=== PATIENT | female | born 1945 | race Caucasian/White ===

== ENCOUNTER → 2016-03-24 | Outpatient (CLI) | payer BC ==
[~2016-03-24] MED LIST: ACET-1256 PO; ASPI81TA28 PO; ATOR-22 PO; CHOL1000 PO; CHOL100010 PO; CHOL20009 PO; CLB/200 PO; CMD75 PO; CYAN500T PO; CYCL10TA6 PO; ENOX40IN SQ; FESO4TAB PO; KRIL1000 PO; LEVO25TA PO; LEVO75TA PO; LORA-741 PO; LRS10 PO; METR-163 PO; MIRA1TAB3 PO; OXGN; POTA99TA PO; POTASSIUM PO; PROB1TAB16; RANI150C4 PO; RANI1TAB75 PO; TRAM-10 PO; TROS20TA3 PO; VANC5CAP PO; WARF5TAB90 PO; WARF7.5T PO; ZNTT/150 PO; ZOLP5TAB PO; [UNRECOGNIZED DRUG - OTHER] PO
[2016-03-24 13:18] LABS: CHOLESTEROL/HDL RATIO 3.7
== END | disposition home or self-care (01) ==
LOC: C.LABPVFM 09:49
PROVIDERS: ATTEND Internal Medicine
DX: R07.89 Other chest pain (principal); R53.83 Other fatigue

== ENCOUNTER 2016-04-06 12:31 | Emergency (ER) | payer BC ==
[~2016-04-06] VITALS: Ht 170.2 cm; Wt 71.5 kg
[~2016-04-06 12:31] MED LIST changes: -ACET-1256 PO; -CHOL1000 PO; -CHOL20009 PO; -CYCL10TA6 PO; -ENOX40IN SQ; -FESO4TAB PO; -LEVO75TA PO; -LORA-741 PO; -LRS10 PO; -METR-163 PO; -MIRA1TAB3 PO; -POTASSIUM PO; -PROB1TAB16; -RANI1TAB75 PO; -TRAM-10 PO; -TROS20TA3 PO; -VANC5CAP PO; -WARF7.5T PO; -ZNTT/150 PO; -[UNRECOGNIZED DRUG - OTHER] PO
[2016-04-06 12:32] VITALS: TEMP 36.6; Ht 170.2 cm; Wt 71.5 kg
[2016-04-06 14:33] LABS: BASO % 0.4 %; BASO ABS # 0.02 K/uL (0-0.2); COMPLETE YES; EOS % 4.4 %; HEMATOCRIT 44.6 % (37-47); IG% 0.2 %; LYMPH % 25.6 %; LYMPH ABS # 1.22 K/uL (1.2-3.4); MEAN CELL VOLUME 80.5 fL (80-100); MEAN CORPUSCULAR HGB CONC 32.3 g/dl (32-36); MEAN PLATELET VOLUME 9.5 fL (7.4-10.4); NEUT % 56.4 %; PLATELET COUNT 169 K/uL (130-400); RED BLOOD COUNT 5.54 M/uL (4.2-5.4); WHITE BLOOD COUNT 4.76 K/uL (4.8-10.8)
[2016-04-06] MEDS ORDERED: WARF7.5T PO (14:41)
[2016-04-06] MEDS ORDERED: CHOL1000 PO (14:41)
[2016-04-06] MEDS ORDERED: CYCL10TA6 PO (14:41)
[2016-04-06] MEDS ORDERED: RANI1TAB75 PO (14:43)
[2016-04-06 14:45] LABS: INR 2.5 (0.9-1.1); PARTIAL THROMBOPLASTIN RATIO 1.4; PROTHROMBIN TIME (PATIENT) 27.9 SECONDS (9.0-12.0)
--- NOTE | 2016-04-06 14:51 | DIAGNOSTIC IMAGING REPORT ---
HEAD CT NONCONTRAST CT DOSE: 580.48 mGy.cm HISTORY: Headache eval for bleed TECHNIQUE: Multiaxial CT images of the head were performed without the use of intravenous contrast. Comparison: None. Findings: The paranasal sinuses and mastoid air cells are clear. The calvarium and skull base are intact. The ventricles and sulci are within normal limits. There is no mass, hematoma, midline shift, or acute infarct. Impression: No acute intracranial abnormality. Electronically signed by: Roshan Ulrich M.D. 04/06/2016 2:49 PM Dictated Date/Time: 04/06/2016 2:49 PM
[2016-04-06 14:59] LABS: BUN/CREATININE RATIO 20.8 (10-20); CALCIUM 8.7 mg/dl (8.5-10.1); CREATININE 0.97 mg/dl (0.60-1.20); POTASSIUM 4.2 mmol/L (3.5-5.1)
[2016-04-06 15:31] VITALS: BP 107/82; PULSE 70; O2SAT 96
--- NOTE | 2016-04-06 20:11 | EMERGENCY ROOM VISIT NOTE ---
History Report prepared by Nico: Nat Hagen Under the Supervision of: Dr. Sanjay Longoria M.D. First contact with patient: 13:34 Chief Complaint: HEADACHE Stated Complaint: BAD HEADACHE History of Present Illness The patient is a 70 year old female who presents to the Emergency Room with complaints of an intermittent headache that began about a week ago. The patient states that for several weeks prior to the start of her headache, she was having some twinges of pain to the right side of her head that have been going away so she was not concerned. About a week ago, she developed a more persistent headache on the right side of her head that has since moved to the top of her head. She describes the current pain as dull and nagging and a 3/10 in severity. Since her headache began she has had some lip numbness which has since resolved. She has not had any visual changes. The patient has a history of migraine headaches but states that the location and type of pain does not feel like a typical migraine. She also usually experiences visual changes and hypersensitivity with her migraines, which she does not have now. The patient notes that she had some neck pain which radiated up to her head several months ago after sleeping in an unusual position on a plane and was prescribed a muscle relaxer at that time. She took one of the muscle relaxers without much relief. She also notes that she took a tranquilizer 2 days ago with little relief. She was lifting heavy bails of hay and wood yesterday which did not seem to worsen her pain. The patient is on Coumadin due to a history of blood clots which she most recently had 25 years ago. Denies speech trouble, unilateral numbness or weakness, fever, or other complaints. Source of History: patient Onset: a week ago Position: head (top) Symptom Intensity: 3/10 Quality: dull, other (nagging) Timing: intermittent Associated Symptoms: + numbness (lip numbness), No fevers, No weakness Review of Systems See HPI for pertinent positives & negatives. A total of 10 systems reviewed and were otherwise negative. Past Medical & Surgical Medical Problems: (1) Anxiety (2) Diverticulosis Colon (W/O Ment Of Hemorrhage) (3) Esophageal Reflux (4) Essential Thrombocythemia (5) Hypercholesteremia (6) Hyperlipidemia Nec/Nos (7) Osteoarthritis (8) PERFORATION OF INTESTINE (9) PERSONAL HISTORY OF PULMONARY EMBOLISM (10) Personal History Of Tuberculosis (11) POLYCYTHEMIA VERA (12) Polycythemia Vera (13) Rheumatic fever (14) VENOUS THROMBOSIS NEC Surgical Problems: (1) Left rotator cuff tear (2) Rotator cuff tear, right Family History Cancer Heart disease Stroke MOTHER, Onset:60 years & older GRANDMOTHER, Onset:60 years & older aunt, Onset:60 years & older Social History Smoking Status: Never Smoker Alcohol Use: occasionally Drug Use: none Marital Status: Housing Status: lives with family Occupation Status: retired Current/Historical Medications Scheduled Aspirin (Aspirin Ec), 81 MG PO DAILY Atorvastatin (Lipitor), 20 MG PO DAILY Celecoxib (CeleBREX), 200 MG PO DAILY Cholecalciferol (Vitamin D3), 1 TAB PO DAILY Cyanocobalamin (Vitamin B-12), 500 MCG PO DAILY Cyclobenzaprine Hcl (Flexeril), 10 MG PO TID Krill Oil (Krill Oil), 300 MG PO DAILY Levothyroxine Sodium (Synthroid), 75 MCG PO DAILYBB Oxygen (Oxygen), 1 LITER NA QPM Potassium (Potassium), 99 MG PO BID Ranitidine HCl (Ranitidine 75), 75 MG PO BID Warfarin Sodium (Coumadin), 5 MG PO 3XWK Warfarin Sodium (Coumadin), 7.5 MG PO 4XWK Scheduled PRN Zolpidem Tartrate (Ambien), 5 MG PO HS PRN for Sleep Allergies Coded Allergies: Penicillins (Verified Allergy, Severe, EYES SWELL SHUT, 04/06/16) Alendronate (Verified Adverse Reaction, Intermediate, REFLUX ESOPHAGITIS/ CHEST PAIN, 04/06/16) Bisphosphonates (Verified Adverse Reaction, Intermediate, REFLUX ESOPHAGITIS/CHEST PAIN (FOSAMAX AND BONIVA), 04/06/16) Morphine (Verified Adverse Reaction, Intermediate, vomiting, 04/06/16) Physical Exam Vital Signs Date Time Temp Pulse Resp B/P Pulse Ox O2 Delivery O2 Flow Rate FiO2 04/06/16 15:31 70 20 107/82 96 04/06/16 14:33 76 20 126/67 96 Room Air 04/06/16 12:32 36.6 91 18 107/71 94 Room Air Physical Exam Constitutional: Vital signs reviewed. Eyes: Pupils are equal round reactive to light. Conjunctiva are noninjected. ENT: Pharynx is clear without erythema or exudate. Mucous membranes are moist. Neck supple without meningeal signs. No tenderness to the right temporal artery. Respiratory: Clear to auscultation bilaterally. Breath sounds are equal bilaterally. Cardiovascular: Regular rate and rhythm. No rubs or gallops. GI: Soft, nondistended and nontender. Bowel sounds are present. Musculoskeletal: No peripheral edema. No lower extremity tenderness. Integumentary: No cyanosis. Neurological: The patient is awake and alert. Cranial nerves II-XII are intact. Motor is 5 out of 5 all extremities. Sensation is intact to light touch all extremities. Normal speech. Normal gait. No pronator drift. Psychiatric: Normal affect. Medical Decision & Procedures ER Provider Diagnostic Interpretation: CT results as stated below per my review and radiologist interpretation. HEAD CT NONCONTRAST CT DOSE: 580.48 mGy.cm HISTORY: Headache eval for bleed TECHNIQUE: Multiaxial CT images of the head were performed without the use of intravenous contrast. Comparison: None. Findings: The paranasal sinuses and mastoid air cells are clear. The calvarium and skull base are intact. The ventricles and sulci are within normal limits. There is no mass, hematoma, midline shift, or acute infarct. Impression: No acute intracranial abnormality. Electronically signed by: Roshan Ulrich M.D. 04/06/2016 2:49 PM Dictated Date/Time: 04/06/2016 2:49 PM Laboratory Results 04/06/16 14:20 Red Blood Count 5.54, Mean Corpuscular Volume 80.5, Mean Corpuscular Hemoglobin 26.0, Mean Corpuscular Hemoglobin Concent 32.3, Mean Platelet Volume 9.5, Neutrophils (%) (Auto) 56.4, Lymphocytes (%) (Auto) 25.6, Monocytes (%) (Auto) 13.0, Eosinophils (%) (Auto) 4.4, Basophils (%) (Auto) 0.4, Neutrophils # (Auto ) 2.68, Lymphocytes # (Auto) 1.22, Monocytes # (Auto) 0.62, Eosinophils # (Auto ) 0.21, Basophils # (Auto) 0.02 04/06/16 14:20 Test 04/06/16 14:20 White Blood Count 4.76 K/uL (4.8-10.8) Red Blood Count 5.54 M/uL (4.2-5.4) Hemoglobin 14.4 g/dL (12.0-16.0) Hematocrit 44.6 % (37-47) Mean Corpuscular Volume 80.5 fL (80-100) Mean Corpuscular Hemoglobin 26.0 pg (25-34) Mean Corpuscular Hemoglobin Concent 32.3 g/dl (32-36) Platelet Count 169 K/uL (130-400) Mean Platelet Volume 9.5 fL (7.4-10.4) Neutrophils (%) (Auto) 56.4 % Lymphocytes (%) (Auto) 25.6 % Monocytes (%) (Auto) 13.0 % Eosinophils (%) (Auto) 4.4 % Basophils (%) (Auto) 0.4 % Neutrophils # (Auto) 2.68 K/uL (1.4-6.5) Lymphocytes # (Auto) 1.22 K/uL (1.2-3.4) Monocytes # (Auto) 0.62 K/uL (0.11-0.59) Eosinophils # (Auto) 0.21 K/uL (0-0.5) Basophils # (Auto) 0.02 K/uL (0-0.2) RDW Standard Deviation 51.8 fL (36.4-46.3) RDW Coefficient of Variation 17.6 % (11.5-14.5) Immature Granulocyte % (Auto) 0.2 % Immature Granulocyte # (Auto) 0.01 K/uL (0.00-0.02) Erythrocyte Sedimentation Rate 21 mm/hr (0-21) Prothrombin Time 27.9 SECONDS (9.0-12.0) Prothromb Time International Ratio 2.5 (0.9-1.1) Activated Partial Thromboplast Time 37.6 SECONDS (21.0-31.0) Partial Thromboplastin Ratio 1.4 Anion Gap 11.0 mmol/L (3-11) Est Creatinine Clear Calc Drug Dose 53.2 ml/min Estimated GFR () 69.1 Estimated GFR (Non- 59.6 BUN/Creatinine Ratio 20.8 (10-20) Calcium Level 8.7 mg/dl (8.5-10.1) Laboratory results as reviewed by me. ED Course 1336: The patient was evaluated in room C5. A complete history and physical exam was performed. 1510: I reassessed the patient and discussed test results with her. She agreed with the plan. The patient will be discharged home. Medical Decision This is a 70-year-old female who presents with a headache. Differential diagnosis includes migraine headache, tension headache, intracranial hemorrhage , intracranial mass, temporal arteritis. I did perform a limited focused review of portions of the patient's old chart on the electronic medical record. She had an INR of 2.8 on April 01. I did evaluate the patient as noted above. The patient is presenting with a headache for the past week. She states it is not similar to her previous migraine. She does state it is rather mild and rates it only a 3 out of 10 in severity. She is neurologically intact and afebrile. She does take Coumadin. IV access was established. I did order and review the patient's blood work as noted in the electronic medical record. Her white blood cell count is not elevated. ESR is unremarkable. INR is 2.5. I did order a CT of the head. I did review the images myself as well as the radiology report as described above. There is no evidence of intracranial abnormality. I did discuss the test results with the patient. I did recommend close follow up with her physician. She will use Tylenol as needed for pain. She was discharged in good condition. Impression Primary Impression: Headache Additional Impression: Anticoagulated on Coumadin Scribe Attestation The scribe's documentation has been prepared under my direct and personally reviewed by me in its entirety. I confirm that the note above accurately reflects all work, treatment, procedures, and medical decision making performed by me. Departure Information Dispostion Home / Self-Care Referrals Nolberto Wiley M.D. (PCP) Patient Instructions Headache Pain, My [facility] Additional Instructions You have been examined and treated today on an emergency basis only. This is not a substitute for, or an effort to provide, complete comprehensive medical care. It is impossible to recognize and treat all injuries or illnesses in a single emergency department visit. It is therefore important that you follow up closely with your physician. Call as soon as possible for an appointment. Return for worsening symptoms or if you develop fever, vomiting, numbness or weakness on one side of your body, loss of vision, difficulty with your speech or walking, or any other concerning symptoms. Problem Qualifiers Primary Impression: Headache Headache type: unspecified Headache chronicity pattern: acute headache Intractability: not intractable Qualified Codes: R51 - Headache
[2016-05-27] MEDS ORDERED: OXGN (11:47)
[2016-05-27] MEDS ORDERED: LRS10 PO (11:47)
[2016-05-27] MEDS ORDERED: POTASSIUM PO (12:00)
[2016-05-27] MEDS ORDERED: KRIL1000 PO (12:00)
[2016-05-27] MEDS ORDERED: CHOL20009 PO (12:00)
[2016-05-27] MEDS ORDERED: WARF5TAB90 PO (12:00)
[2016-05-27] MEDS ORDERED: ACET-1256 PO (12:00)
[2016-05-27] MEDS ORDERED: ZOLP5TAB PO (12:00)
[2016-05-27] MEDS ORDERED: WARF7.5T PO (12:00)
[2016-05-27] MEDS ORDERED: LORA-741 PO (12:00)
[2016-05-27] MEDS ORDERED: LEVO75TA PO (12:00)
[2016-05-27] MEDS ORDERED: ZNTT/150 PO (12:00)
[2016-06-05] MEDS ORDERED: METR-163 PO (12:43)
[2016-06-10] MEDS ORDERED: PROB1TAB16 (12:43)
[2016-07-09] MEDS ORDERED: VANC5CAP PO (12:38)
[2016-08-28] MEDS ORDERED: FESO4TAB PO (12:16)
[2016-09-03] MEDS ORDERED: MIRA1TAB3 PO (12:15)
[2016-09-16] MEDS ORDERED: TRAM-10 PO (09:23)
[2016-09-25] MEDS ORDERED: LRS10 PO (13:31)
[2016-09-25] MEDS ORDERED: [UNRECOGNIZED DRUG - OTHER] PO (13:31)
[2016-09-25] MEDS ORDERED: CYAN500T PO (13:31)
[2016-09-29] MEDS ORDERED: ENOX40IN SQ (15:04)
[2016-11-05] MEDS ORDERED: TROS20TA3 PO (14:10)
== END 2016-04-06 15:33 | disposition home or self-care (01) ==
LOC: C.EDB 12:32 → C.EDC 15:33
DX: R51 Headache (principal); Z79.01 Long term (current) use of anticoagulants; F41.9 Anxiety disorder, unspecified; K57.30 Diverticulosis of large intestine without perforation or abscess without bleeding; K21.9 Gastro-esophageal reflux disease without esophagitis; D69.3 Immune thrombocytopenic purpura; E78.00 Pure hypercholesterolemia, unspecified; E78.5 Hyperlipidemia, unspecified; M19.90 Unspecified osteoarthritis, unspecified site; D45 Polycythemia vera; Z86.711 Personal history of pulmonary embolism; Z86.718 Personal history of other venous thrombosis and embolism; Z79.82 Long term (current) use of aspirin; Z82.3 Family history of stroke

== ENCOUNTER → 2016-04-28 | Outpatient (CLI) | payer BC ==
[~2016-04-28] MED LIST changes: +ACET-1256 PO; +CHOL1000 PO; -CHOL100010 PO; +CHOL20009 PO; -CMD75 PO; +CYCL10TA6 PO; +ENOX40IN SQ; +FESO4TAB PO; +LEVO75TA PO; +LORA-741 PO; +LRS10 PO; +METR-163 PO; +MIRA1TAB3 PO; +POTASSIUM PO; +PROB1TAB16; -RANI150C4 PO; +RANI1TAB75 PO; +TRAM-10 PO; +TROS20TA3 PO; +VANC5CAP PO; +WARF7.5T PO; +ZNTT/150 PO; +[UNRECOGNIZED DRUG - OTHER] PO
== END | disposition home or self-care (01) ==
LOC: C.LABBFT 10:25
PROVIDERS: ATTEND Nurse Practitioner
DX: Z11.59 Encounter for screening for other viral diseases (principal)

== ENCOUNTER → 2016-05-06 | Outpatient (CLI) | payer BC ==
[2016-05-06 18:06] LABS: URINE APPEARANCE CLEAR (CLEAR); URINE BILIRUBIN NEG (NEG); URINE COLOR YELLOW; URINE NITRITE NEG (NEG); URINE SPECIFIC GRAVITY 1.003 (1.000-1.030); UROBILINOGEN NEG (NEG)
[2016-05-06 18:21] LABS: MANUAL MICROSCOPIC REQUIRED? NO; REVIEW REQ? NO
== END | disposition home or self-care (01) ==
LOC: C.LABPVFM 14:49
PROVIDERS: ATTEND Internal Medicine
DX: R39.9 Unspecified symptoms and signs involving the genitourinary system (principal)

== ENCOUNTER → 2016-05-20 | Outpatient (CLI) | payer BC ==
--- NOTE | 2016-05-20 16:46 | DIAGNOSTIC IMAGING REPORT ---
ABDOMEN AND PELVIS CT WITH IV AND ORAL CONTRAST CT DOSE: 279.13 mGy.cm HISTORY: Generalized abdominal pain. Right flank pain. TECHNIQUE: Multiaxial CT images of the abdomen and pelvis were performed following the use of intravenous and oral contrast. COMPARISON STUDY: Abdomen and pelvis CT 11/02/2015. FINDINGS: The lung bases are essentially clear. Small hiatus hernia. Small diverticulum at the duodenum. Cholecystectomy. Stable 7 mm hypodense lesion within the left hepatic lobe. This likely represents a cyst. The pancreas, spleen, and adrenal glands are unremarkable. Bilateral peripelvic renal cysts are again noted. No hydronephrosis. Normal bladder. No retroperitoneal lymphadenopathy. Small calcified fibroid within the uterine fundus. This remains unchanged. There appear to be a few punctate stones within the kidneys. A few colonic diverticula. No bowel wall thickening or obstruction. The visualized appendix is unremarkable. Evidence for prior small bowel anastomosis within the midabdomen. IMPRESSION: 1. No significant change compared to the prior study. 2. No definite bowel wall thickening or obstruction. 3. Bilateral nephrolithiasis. No hydronephrosis. 4. The visualized appendix is unremarkable. 5. A few colonic diverticula. Electronically signed by: Arsh Khanna M.D. 05/20/2016 4:45 PM Dictated Date/Time: 05/20/2016 4:40 PM
== END | disposition home or self-care (01) ==
LOC: C.CTS 14:04
PROVIDERS: ATTEND Obstetrics & Gynecology
DX: M54.5 Low back pain (principal); R10.9 Unspecified abdominal pain; D45 Polycythemia vera

== ENCOUNTER → 2016-06-02 | Outpatient (CLI) | payer BC ==
[~2016-06-02] MED LIST changes: -CHOL1000 PO; -CYCL10TA6 PO; -LEVO25TA PO; -POTA99TA PO; -RANI1TAB75 PO
== END | disposition home or self-care (01) ==
LOC: C.LABSPEC 10:45
PROVIDERS: ATTEND Nurse Practitioner Adult Health
DX: R39.9 Unspecified symptoms and signs involving the genitourinary system (principal)

== ENCOUNTER → 2016-06-10 | Outpatient (CLI) | payer BC | END | disposition home or self-care (01) | LOC: C.LABPVFM 16:15 | PROVIDERS: ATTEND Nurse Practitioner | DX: R39.9 Unspecified symptoms and signs involving the genitourinary system (principal); Z51.81 Encounter for therapeutic drug level monitoring; Z79.01 Long term (current) use of anticoagulants ==

== ENCOUNTER → 2016-07-31 | Outpatient (CLI) | payer BC ==
[~2016-07-31] MED LIST changes: -LORA-741 PO; -METR-163 PO
[2016-07-31 18:00] LABS: ALB/GLOB RATIO 1.1 (0.9-2); ALKALINE PHOSPHATASE 103 U/L (45-117); ALT/SGPT 40 U/L (12-78); AST/SGOT 35 U/L (15-37); BLOOD UREA NITROGEN 22 mg/dl (7-18); CALCIUM 9.1 mg/dl (8.5-10.1); CARBON DIOXIDE 30 mmol/L (21-32); CHLORIDE 108 mmol/L (98-107); CREATININE 0.81 mg/dl (0.60-1.20); GLUCOSE 89 mg/dl (70-99); POTASSIUM 4.5 mmol/L (3.5-5.1); SODIUM 141 mmol/L (136-145)
== END | disposition home or self-care (01) ==
LOC: C.LABPVFM 13:31
PROVIDERS: ATTEND Internal Medicine
DX: R10.9 Unspecified abdominal pain (principal); E03.9 Hypothyroidism, unspecified

== ENCOUNTER → 2016-08-11 | Outpatient (CLI) | payer BC | END | disposition home or self-care (01) | LOC: C.LABPVFM 14:41 | PROVIDERS: ATTEND Nurse Practitioner Adult Health | DX: N39.0 Urinary tract infection, site not specified (principal) ==

== ENCOUNTER → 2016-08-27 | Outpatient (CLI) | payer BC ==
[~2016-08-27] MED LIST changes: -PROB1TAB16; -VANC5CAP PO
== END | disposition home or self-care (01) ==
LOC: C.LABSPEC 17:08
PROVIDERS: ATTEND Nurse Practitioner Adult Health
DX: N20.0 Calculus of kidney (principal)

== ENCOUNTER → 2016-08-28 | Outpatient (CLI) | payer BC ==
--- NOTE | 2016-08-28 11:50 | DIAGNOSTIC IMAGING REPORT ---
KUB HISTORY: N20.0 Nephrolithiasis COMPARISON: Abdomen and pelvis CT 05/20/2016. FINDINGS: The bowel gas pattern is unremarkable. There are no dilated loops of small bowel to suggest an obstruction. Stable calcification in the midpelvis consistent with a calcified uterine fibroid. Left deep pelvis calcifications are also stable and are consistent with phleboliths. Suture material within the deep pelvis. There are multiple punctate bilateral renal calculi. Moderate well-formed stool seen within the colon. Cholecystectomy. No pneumoperitoneum or pneumatosis. IMPRESSION: Multiple punctate bilateral renal calculi, unchanged. No ureteral calculi identified. Electronically signed by: Arsh Khanna M.D. 08/28/2016 11:48 AM Dictated Date/Time: 08/28/2016 11:46 AM
== END | disposition home or self-care (01) ==
LOC: C.RAD 11:15
PROVIDERS: ATTEND Nurse Practitioner Adult Health
DX: N20.0 Calculus of kidney (principal)

== ENCOUNTER → 2016-09-05 | Outpatient (CLI) | payer BC ==
[~2016-09-05] MED LIST changes: -FESO4TAB PO
[2016-09-05 18:13] LABS: LYME DISEASE AB IGG NEG (NEG); LYME DISEASE AB IGM NEG (NEG)
== END | disposition home or self-care (01) ==
LOC: C.LABBFT 14:33
PROVIDERS: ATTEND Physician Assistant Medical
DX: R61 Generalized hyperhidrosis (principal)

== ENCOUNTER → 2016-09-11 | Outpatient (CLI) | payer BC ==
[~2016-09-11] MED LIST changes: -CYAN500T PO; -ENOX40IN SQ; -LRS10 PO; -TROS20TA3 PO; -[UNRECOGNIZED DRUG - OTHER] PO
[2016-09-11 18:04] LABS: BASO % 0.5 %; BASO ABS # 0.03 K/uL (0-0.2); COMPLETE YES; EOS % 3.5 %; HEMATOCRIT 50.3 % (37-47); IG% 0.2 %; LYMPH % 26.3 %; LYMPH ABS # 1.51 K/uL (1.2-3.4); MEAN CELL VOLUME 84.8 fL (80-100); MEAN CORPUSCULAR HGB CONC 31.8 g/dl (32-36); MEAN PLATELET VOLUME 9.7 fL (7.4-10.4); MONO % 9.4 %; NEUT % 60.1 %; PLATELET COUNT 181 K/uL (130-400); RED BLOOD COUNT 5.93 M/uL (4.2-5.4); WHITE BLOOD COUNT 5.74 K/uL (4.8-10.8)
[2016-09-11 18:27] LABS: ALT/SGPT 30 U/L (12-78); BLOOD UREA NITROGEN 26 mg/dl (7-18); BUN/CREATININE RATIO 29.1 (10-20); CALCIUM 9.1 mg/dl (8.5-10.1); CARBON DIOXIDE 28 mmol/L (21-32); CHLORIDE 107 mmol/L (98-107); GLUCOSE 96 mg/dl (70-99); POTASSIUM 4.9 mmol/L (3.5-5.1); SODIUM 141 mmol/L (136-145)
[2016-09-11 18:30] LABS: ALB/GLOB RATIO 1.1 (0.9-2); ALKALINE PHOSPHATASE 96 U/L (45-117); AST/SGOT 26 U/L (15-37)
== END | disposition home or self-care (01) ==
LOC: C.LABPVFM 15:46
PROVIDERS: ATTEND Physician Assistant Medical
DX: R61 Generalized hyperhidrosis (principal)

== ENCOUNTER → 2016-09-18 | Outpatient (CLI) | payer BC ==
[~2016-09-18] MED LIST changes: +CYAN500T PO; +ENOX40IN SQ; +LRS10 PO; +TROS20TA3 PO; +[UNRECOGNIZED DRUG - OTHER] PO
[2016-09-22 11:38] LABS: 5-HIAA 2.8 mg/24 h (<=6.0)
== END | disposition home or self-care (01) ==
LOC: C.LABPVFM 13:42
PROVIDERS: ATTEND Physician Assistant Medical
DX: R61 Generalized hyperhidrosis (principal); M54.5 Low back pain; R10.31 Right lower quadrant pain

== ENCOUNTER → 2016-09-18 | Outpatient (CLI) | payer BC | END | disposition home or self-care (01) | LOC: C.LABPVFM 15:34 | PROVIDERS: ATTEND Nurse Practitioner Family | DX: M54.5 Low back pain (principal); R10.31 Right lower quadrant pain ==

== ENCOUNTER → 2016-09-24 | Outpatient (CLI) | payer BC ==
[~2016-09-24] MED LIST changes: -MIRA1TAB3 PO; +OPTIRAY 320 IV PRN
--- NOTE | 2016-09-24 13:31 | DIAGNOSTIC IMAGING REPORT ---
(CHEST) THORAX WITH CLINICAL HISTORY: 70 years-old Female presenting with night sweats and weight loss, precolonoscopy. TECHNIQUE: Multidetector CT imaging of the chest was performed after the administration of intravenous contrast. IV contrast: 93 mL of Optiray 320. A dose lowering technique was used consistent with the principles of ALARA (as low as reasonably achievable). COMPARISON: CTA chest from 2015. CT DOSE (mGy.cm): The estimated cumulative dose is 229.41 mGycm. 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 On soft tissue windows, normal thyroid and thoracic inlet. No axillary, supraclavicular, or mediastinal lymphadenopathy. Few small hilar lymph nodes. Minimal atherosclerosis of aortic arch. Normal heart size. No pericardial or pleural effusion. Cholecystectomy clips noted. On lung windows, reticulation and bandlike consolidation at the apices not significantly changed from prior additional. Peripheral consolidation in the posterior segment of the right upper lobe with few associated tree-in-bud opacities more inferiorly stable to slight interval increase from prior. Adjacent right upper lobe solid nodule measuring 4 mm (series 4 image 125). Numerous additional punctate nodules bilaterally. Minimal dependent opacities at the right lung base, possibly scarring or atelectasis. Minimal subpleural groundglass reticulation dependently in the left lower lobe, nonspecific. Airways patent. On bone windows, normal osseous structures. IMPRESSION: 1. Persistent minimal biapical reticulation and consolidation likely cicatrizing atelectasis. 2. Stable to slight interval increase in right upper lobe nodular opacities; atypical infection/bronchiolitis not excluded. 3. Nonspecific bilateral small solid pulmonary nodules, the largest measuring 4 mm. Follow-up per Fleischner Society 2017 recommendations below. Please refer to below summary of Fleischner Society 2017 recommendations for follow-up of incidental CT nodules (H Lorin et al. Guidelines for management of incidental pulmonary nodules detected on CT images: From the Fleischner Society 2017. Radiology 2017; 284: 228-243.) SOLID NODULES Single nodule; size <6 mm * Low risk patients: No routine follow-up * High risk patients: Optional CT at 12 months Single nodule; size 6-8 mm * Low risk patients: CT at 6-12 months, then consider CT at 18-24 months * High risk patients: CT at 6-12 months, then at 18-24 months Single nodule; size >8 mm * Either low or high risk patients: Considered CT at 3 months, PET/CT, or tissue sampling Multiple nodules; size <6 mm * Low risk patients: No routine follow up * High risk patients: Optional CT at 12 months Multiple nodules; size 6-8 mm * Low risk patients: CT at 3-6 months, then consider CT at 18-24 months * High risk patients: CT at 3-6 months, then at 18-24 months Multiple nodules; size >8 mm * Low risk patients: CT at 3-6 months, then consider at 18-24 months * High risk patients: CT at 3-6 months, then at 18-24 months Note: These guidelines apply to incidental nodules. These guidelines did not apply to patients younger than 35 years, immunocompromised patients, or patients with cancer. * Low risk patients: Minimal or absent history of smoking and/or other known risk factors * High risk patients: History of smoking, exposure to other carcinogens, emphysema, fibrosis, upper lobe location, family history of lung cancer, etc. * If a nodule up to 8 mm is partly solid or is ground glass further follow-up is required after 24 months to exclude possible slow growing adenocarcinoma SUBSOLID NODULES Single ground-glass nodule * Nodule size < 6 mm: No routine follow-up * Nodule size > or = 6 mm: CT at 6-12 months to confirm persistence, then CT every 2 years until 5 years Single part-solid nodule * Nodule size < 6 mm: No routine follow-up * Nodules size > or = 6 mm: CT at 3-6 months to confirm persistence. If unchanged and solid component remains < 6 mm, annual CT should be performed for 5 years Multiple nodules * Nodule size < 6 mm: CT at 3-6 months. If stable, consider CT at 2 and 4 years. * Nodules size > or = 6 mm: CT at 3-6 months. Subsequent management based on the most suspicious nodule(s) Electronically signed by: Ugo Arora M.D. 09/24/2016 1:30 PM Dictated Date/Time: 09/24/2016 1:20 PM
== END | disposition home or self-care (01) ==
LOC: C.CTS 12:43
PROVIDERS: ATTEND Physician Assistant Medical
DX: R61 Generalized hyperhidrosis (principal)

== ENCOUNTER → 2016-09-29 | Day surgery (SDC) | payer BC ==
[2016-09-25 13:32] VITALS: Ht 170.2 cm; Wt 69.1 kg
[~2016-09-29] VITALS: Ht 170.2 cm; Wt 69.1 kg
[~2016-09-29] MED LIST changes: +LIDOCAINE HCL 2% 2 ML VIAL (20MG/ML) ONE; -OPTIRAY 320 IV PRN; +PROPOFOL IV EMULSION 10 MG/ML 20 ML VIAL IV ONE; -TRAM-10 PO
[2016-09-29 15:12] VITALS: TEMP 36.3
--- NOTE | 2016-09-29 15:28 | Endo History and Physical ---
History & Physical Date of Service: Sep 29, 2016. Chief Complaint: screening Referring Physician: Dr. Wiley,copies to Dr. Eastman also per patient History of Present Illness 70 yo CF who presents for screening colonoscopy. Past Medical History Arthritis, Gastrointestinal Disorder, Pulmonary Emboli, Anxiety, Cancer, High Cholesterol Past Surgical History Hx Cardiac Surgery: No Hx Internal Defibrillator: No Hx Pacemaker: No Hx Abdominal Surgery: Yes (TUBAL LIGATION, BOWEL RESECTION, TANIA) Hx of Implantable Prosthesis: No Hx Post-Op Nausea and Vomiting: No Hx Cancer Surgery: Yes (SKIN CANCER REMOVAL) Hx Thoracic Surgery: No Hx Orthopedic: Yes (RT/LT RCR) Hx Urinary Tract Surgery: Yes (BLADDER TACK) Family History None Social History Smoking Status: Never Smoker Hx Substance Use: No Hx Alcohol Use: Yes (1 BEER OR WINE/WEEK) Allergies Coded Allergies: Penicillins (Verified Allergy, Severe, EYES SWELL SHUT, 09/25/16) Alendronate (Verified Adverse Reaction, Intermediate, REFLUX ESOPHAGITIS/ CHEST PAIN, 09/25/16) Bisphosphonates (Verified Adverse Reaction, Intermediate, REFLUX ESOPHAGITIS/CHEST PAIN (FOSAMAX AND BONIVA), 09/25/16) Morphine (Verified Adverse Reaction, Intermediate, vomiting, 09/25/16) Current Medications Reported Home Medications Medications Dose Route/Sig Max Daily Dose Days Date Category Dose Instructions Lovenox (Enoxaparin Sodium) 40 Mg/0.4 Ml Inj 40 Mg SQ DAILY 09/29/16 Reported [Ibguard] 1 Tab PO QAM 09/25/16 Reported Baclofen 10 Mg Tab 1 Tab PO DAILY PRN 09/25/16 Reported Vitamin B-12 (Cyanocobalamin) 500 Mcg Tab 500 Mcg PO QAM 09/25/16 Reported Ambien (Zolpidem Tartrate) 5 Mg Tab 0.5-1 Tab PO HS PRN 05/27/16 Reported Coumadin (Warfarin Sodium) 7.5 Mg Tab 7.5 Mg PO 4XWK 05/27/16 Reported SUN,TUES,THURS,SAT Coumadin (Warfarin Sodium) 5 Mg Tab 5 Mg PO 3XWK 05/27/16 Reported MON,WED,FRI Vitamin D (Cholecalciferol) 2,000 Unit Tab 1 Tab PO QAM 05/27/16 Reported Tylenol (Acetaminophen) 500 Mg Tab 1 Tab PO Q8 PRN 05/27/16 Reported Zantac (Ranitidine HCl) 150 Mg Tab 150 Mg PO BID 05/27/16 Reported [Potassium ] 99 Mg PO BID 05/27/16 Reported Synthroid (Levothyroxine Sodium) 75 Mcg Tab 75 Mcg PO QAM 05/27/16 Reported Krill Oil 1 Cap Cap 1 Cap PO BID 05/27/16 Reported Oxygen Gas 1 Liter NA HS 05/27/16 Reported Aspirin Ec (Aspirin) 81 Mg Tab 81 Mg PO QAM 01/02/16 Reported CeleBREX (Celecoxib) 200 Mg Cap 200 Mg PO BID 11/10/13 Reported Lipitor (Atorvastatin Calcium) 20 Mg Tab 20 Mg PO QAM 06/09/12 Reported Vital Signs Weight (Kilograms): 69.09 Height (Feet): 5 Height (Inches): 7 Date Time Temp Pulse Resp B/P (MAP) Pulse Ox O2 Delivery O2 Flow Rate FiO2 09/29/16 15:12 36.3 86 18 121/76 (91) 95 Room Air Physical Exam General Appearance: WD/WN, no apparent distress Respiratory/Chest: Auscultation: breath sounds normal Cardiovascular: Heart Auscultation: RRR Abdomen: Bowel Sounds: normal Inspection & Palpation: soft, non-distended, no tenderness, guarding & rebound Assessment and Plan Assessment: 70 yo CF who presents for screening colonoscopy. Plan: Proceed with colonoscopy.
--- NOTE | 2016-09-29 15:59 | GI REPORT ---
Procedure Date: 09/29/2016 2:51 PM Procedure: Colonoscopy Indications: Screening for colorectal malignant neoplasm Medicines: Monitored Anesthesia Care Complications: No immediate complications. Estimated Blood Loss: Estimated blood loss: none. Procedure: Pre-Anesthesia Assessment: - Prior to the procedure, a History and Physical was performed, and patient medications and allergies were reviewed. The patient's tolerance of previous anesthesia was also reviewed. The risks and benefits of the procedure and the sedation options and risks were discussed with the patient. All questions were answered, and informed consent was obtained. Prior Anticoagulants: The patient last took aspirin 1 day, Coumadin (warfarin) 3 days and Lovenox (enoxaparin) 1 day prior to the procedure. ASA Grade Assessment: IV - A patient with severe systemic disease that is a constant threat to life. After reviewing the risks and benefits, the patient was deemed in satisfactory condition to undergo the procedure. After I obtained informed consent, the scope was passed under direct vision. Throughout the procedure, the patient's blood pressure, pulse, and oxygen saturations were monitored continuously. The scope was introduced through the anus and advanced to the terminal ileum. The colonoscopy was performed with moderate difficulty due to restricted mobility of the colon and significant looping. Successful completion of the procedure was aided by using manual pressure. The patient tolerated the procedure fairly well. The quality of the bowel preparation was good. The terminal ileum, ileocecal valve, appendiceal orifice, and rectum were photographed. Findings: Multiple small-mouthed diverticula were found in the sigmoid colon. Non-bleeding internal hemorrhoids were found during retroflexion. The hemorrhoids were small. Impression: - Diverticulosis in the sigmoid colon. - Non-bleeding internal hemorrhoids. - No specimens collected. Recommendation: - Resume previous diet. - Continue present medications. - Repeat colonoscopy in 5 years for surveillance. - Return to primary care physician as previously scheduled. Benjamin Bobby DO 09/29/2016 3:58:27 PM This report has been signed electronically. Note Initiated On: 09/29/2016 2:51 PM I attest to the content of the Intraoperative Record and orders documented therein, exceptions below
--- NOTE | 2016-09-29 15:59 | Discharge Instructions ---
Endoscopy Patient Instructions Date / Procedure(s) Performed Sep 29, 2016. Colonoscopy Allergy Information Coded Allergies: Penicillins (Verified Allergy, Severe, EYES SWELL SHUT, 09/25/16) Alendronate (Verified Adverse Reaction, Intermediate, REFLUX ESOPHAGITIS/ CHEST PAIN, 09/25/16) Bisphosphonates (Verified Adverse Reaction, Intermediate, REFLUX ESOPHAGITIS/CHEST PAIN (FOSAMAX AND BONIVA), 09/25/16) Morphine (Verified Adverse Reaction, Intermediate, vomiting, 09/25/16) Discharge Date / Findings Sep 29, 2016. Diverticulosis Internal hemorrhoids Medication Instructions Stopped Medication(s): last dose warfarin Wed 09/24,lovenox 09/28 1030,ASA 09/28,krill oil 09/26 OK to resume all medications today as prescribed Reported Home Medications Medications Dose Route/Sig Max Daily Dose Days Date Category Dose Instructions Lovenox (Enoxaparin Sodium) 40 Mg/0.4 Ml Inj 40 Mg SQ DAILY 09/29/16 Reported [Ibguard] 1 Tab PO QAM 09/25/16 Reported Baclofen 10 Mg Tab 1 Tab PO DAILY PRN 09/25/16 Reported Vitamin B-12 (Cyanocobalamin) 500 Mcg Tab 500 Mcg PO QAM 09/25/16 Reported Ambien (Zolpidem Tartrate) 5 Mg Tab 0.5-1 Tab PO HS PRN 05/27/16 Reported Coumadin (Warfarin Sodium) 7.5 Mg Tab 7.5 Mg PO 4XWK 05/27/16 Reported SUN,TUES,THURS,SAT Coumadin (Warfarin Sodium) 5 Mg Tab 5 Mg PO 3XWK 05/27/16 Reported MON,WED,THU Vitamin D (Cholecalciferol) 2,000 Unit Tab 1 Tab PO QAM 05/27/16 Reported Tylenol (Acetaminophen) 500 Mg Tab 1 Tab PO Q8 PRN 05/27/16 Reported Zantac (Ranitidine HCl) 150 Mg Tab 150 Mg PO BID 05/27/16 Reported [Potassium ] 99 Mg PO BID 05/27/16 Reported Synthroid (Levothyroxine Sodium) 75 Mcg Tab 75 Mcg PO QAM 05/27/16 Reported Krill Oil 1 Cap Cap 1 Cap PO BID 05/27/16 Reported Oxygen Gas 1 Liter NA HS 05/27/16 Reported Aspirin Ec (Aspirin) 81 Mg Tab 81 Mg PO QAM 01/02/16 Reported CeleBREX (Celecoxib) 200 Mg Cap 200 Mg PO BID 11/10/13 Reported Lipitor (Atorvastatin Calcium) 20 Mg Tab 20 Mg PO QAM 06/09/12 Reported Provider Instructions Activity Restrictions - No exercising or heavy lifting for 24 hours. - Do not drink alcohol the day of the procedure. - Do not drive a car or operate machinery until the day after the procedure. - Do not make any important decisions or sign important papers in 24 hours after the procedure. Following Day: - Return to full activity which may include returning to work/school. Diet Start your diet with liquids and light foods (jello, soup, juice, toast). Then eat your usual diet if not nauseated. Treatment For Common After Affects For mild abdominal pain, bloating, or excessive gas: - Rest - Eat lightly - Lie on right side Follow-Up Information Follow-up with Dr. Wiley,copies to Dr. Eastman also per patient as scheduled Anesthesia Information What You Should Know You have had a procedure that required some medicine to reduce anxiety and discomfort. This treatment is called moderate sedation. After receiving the treatment, you may be sleepy, but you will be able to breathe on your own. The effects of the treatment may last for several hours. Follow these instructions along with Activity/Diet recommendations noted above: * Do NOT do anything where dizziness or clumsiness would be dangerous. * Rest quietly at home today, then you can be up and about tomorrow. * Have a responsible person stay with you the rest of today. * You may have had an I.V. today. If so, you may take the dressing off later today. Recommendations Call your doctor if: * Trouble breathing * Continuous vomiting for more than 24 hours * Temperature above 101 degrees * Severe abdominal pain or bloating * Pain not relieved by pain medicine ordered * There is increased drainage or redness from any incision * A large amount of rectal bleeding greater than 2-3 tablespoons. (If you had a polyp/s removed or have hemorrhoids, a small amount of blood - from the rectum is to be expected.) * You have any unanswered questions or concerns. IN THE EVENT OF A SERIOUS EMERGENCY, GO TO THE NEAREST EMERGENCY ROOM Your discharge instructions were prepared by provider Benjamin Bobby. Patient Instructions Signature Page Jeniffer Coyle Patient (or Guardian) Signature/Date: I have read and understand the instructions given to me by my caregivers. Caregiver/RN/Doctor Signature/Date: The above-named patient and/or guardian has received patient instructions on this date. + Original Patient Signature Page (only) stays with chart. Please make copy for patient.
--- NOTE | 2016-09-29 16:11 | Anesthesiology Progress Note ---
Anesthesia Post Op Note Date & Time Sep 29, 2016 at 16:11 Vital Signs Pain Intensity: 2 Vital Signs Past 12 Hours Date Time Temp Pulse Resp B/P (MAP) Pulse Ox O2 Delivery O2 Flow Rate FiO2 09/29/16 16:07 82 18 106/66 (79) 95 Room Air 09/29/16 15:52 81 16 93/54 (67) 95 Room Air 09/29/16 15:12 36.3 86 18 121/76 (91) 95 Room Air Notes Mental Status: alert / awake / arousable, participated in evaluation Pt Amnestic to Procedure: Yes Nausea / Vomiting: adequately controlled Pain: adequately controlled Airway Patency, RR, SpO2: stable & adequate BP & HR: stable & adequate Hydration State: stable & adequate Anesthetic Complications: no major complications apparent
[2016-09-29 16:22] VITALS: BP 112/66; PULSE 69; O2SAT 95
== END | disposition home or self-care (01) ==
LOC: C.GI 14:39
PROVIDERS: ATTEND Internal Medicine
DX: Z12.11 Encounter for screening for malignant neoplasm of colon (principal); K57.92 Diverticulitis of intestine, part unspecified, without perforation or abscess without bleeding; K64.8 Other hemorrhoids; M19.90 Unspecified osteoarthritis, unspecified site; Z86.711 Personal history of pulmonary embolism; F41.9 Anxiety disorder, unspecified; E78.00 Pure hypercholesterolemia, unspecified; Z98.51 Tubal ligation status; Z90.49 Acquired absence of other specified parts of digestive tract; Z85.820 Personal history of malignant melanoma of skin; Z79.01 Long term (current) use of anticoagulants; Z79.82 Long term (current) use of aspirin; Z98.41 Cataract extraction status, right eye; G47.33 Obstructive sleep apnea (adult) (pediatric); Z86.11 Personal history of tuberculosis; Z86.718 Personal history of other venous thrombosis and embolism; K21.9 Gastro-esophageal reflux disease without esophagitis; K44.9 Diaphragmatic hernia without obstruction or gangrene; E03.9 Hypothyroidism, unspecified; Z87.442 Personal history of urinary calculi; Z86.19 Personal history of other infectious and parasitic diseases

== ENCOUNTER → 2016-10-13 | Outpatient (CLI) | payer BC ==
[~2016-10-13] MED LIST changes: -LIDOCAINE HCL 2% 2 ML VIAL (20MG/ML) ONE; -PROPOFOL IV EMULSION 10 MG/ML 20 ML VIAL IV ONE
--- NOTE | 2016-10-14 14:37 | MAMMOGRAPHY REPORT ---
BILATERAL DIGITAL SCREENING MAMMOGRAM WITH CAD: 10/13/2016 CLINICAL HISTORY: Routine screening. TECHNIQUE: Bilateral CC and MLO views were obtained. Current study was also evaluated with a Compute r Aided Detection (CAD) system. COMPARISON: Comparison is made to exams dated: 10/12/2015 mammogram, 10/09/2014 mammogram, 10/07/2013 ma mmogram, 10/06/2012 mammogram, 10/06/2011 mammogram, and 10/03/2010 mammogram - [facility] BREAST COMPOSITION: There are scattered areas of fibroglandular density in both breasts. FINDINGS: There is a cluster of microcalcifications in the upper outer middle one third of the right breast, for which additional spot magnification views are recommended. A few stable scattered benign coarse and punctate calcifications bilaterally. No other suspicious mas s, architectural distortion or cluster of microcalcifications is seen. IMPRESSION: ACR BI-RADS CATEGORY 0: INCOMPLETE EVALUATION: NEED ADDITIONAL IMAGING EVALUATION The cluster of microcalcifications in the right upper outer breast needs additional evaluation. The patient will be called to schedule an appointment. Approximately 10% of breast cancers are not detected with mammography. A negative mammographic report should not delay biopsy if a clinically suggestive mass is present. Mima Watson M.D. ay/:10/13/2016 14:44:00 Calculus Professor: Za PHILIPPE(R)(M), [facility] letter sent: Addl Imaging 0 BI-RADS Code: ACR BI-RADS Category 0: Incomplete Evaluation: Need Additional Imaging Evaluation
== END | disposition home or self-care (01) ==
LOC: C.MAMM 14:06
PROVIDERS: ATTEND Obstetrics & Gynecology
DX: Z12.31 Encounter for screening mammogram for malignant neoplasm of breast (principal); R92.0 Mammographic microcalcification found on diagnostic imaging of breast; Z51.81 Encounter for therapeutic drug level monitoring; Z79.01 Long term (current) use of anticoagulants; D45 Polycythemia vera

== ENCOUNTER → 2016-10-21 | Outpatient (CLI) | payer BC ==
[~2016-10-21] MED LIST changes: -ENOX40IN SQ; -[UNRECOGNIZED DRUG - OTHER] PO
== END | disposition home or self-care (01) ==
LOC: C.LABBFT 12:49
PROVIDERS: ATTEND Physician Assistant Medical
DX: J02.9 Acute pharyngitis, unspecified (principal)

== ENCOUNTER → 2016-10-23 | Outpatient (CLI) | payer BC ==
--- NOTE | 2016-10-23 13:58 | MAMMOGRAPHY REPORT ---
UNILATERAL RIGHT DIGITAL DIAGNOSTIC MAMMOGRAM: 10/23/2016 CLINICAL HISTORY: Callback from screening mammogram for right breast calcifications. TECHNIQUE: Spot magnification right cc and ML views were obtained. COMPARISON: Comparison is made to exams dated: 10/13/2016 mammogram, 10/12/2015 mammogram, 10/09/2014 m ammogram, 10/07/2013 mammogram, 10/06/2012 mammogram, and 10/06/2011 mammogram - [facility]. BREAST COMPOSITION: There are scattered areas of fibroglandular density in the right breast. FINDINGS: Spot magnification views demonstrate a small 6 mm cluster of coarse, heterogeneous calcifi cations in the right upper outer quadrant in association with an asymmetry. The asymmetry has been s table dating back to at least the 2009 exam on the cc view and the calcifications do not appear signi ficantly changed dating back to the September 2014 exam. 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 Recommend short inter loretta follow-up in 6 months to confirm stability on spot magnification views. IMPRESSION: ACR-BI-RADS CATEGORY 3: PROBABLY BENIGN Small cluster of calcifications in the right upper outer quadrant is stable dating back to at least t 2014 exam, and an asymmetry in association with the calcifications is stable dating back to at [address] the 2009 exam. 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 Re commend follow-up diagnostic tomosynthesis mammograms of the right breast in 6 months to confirm stab ility on spot magnification views. The patient has been verbally notified of the results. Approximately 10% of breast cancers are not detected with mammography. A negative mammographic report should not delay biopsy if a clinically suggestive mass is present. Criss Ramos M.D. /:10/23/2016 10:30:30 Oyster Planter: Nga PHILIPPE(Caryn)(M), [facility] letter sent: Follow Up Recommended 3 BI-RADS Code: ACR-BI-RADS Category 3: Probably Benign
== END | disposition home or self-care (01) ==
LOC: C.MAMM 10:00
PROVIDERS: ATTEND Obstetrics & Gynecology
DX: R92.0 Mammographic microcalcification found on diagnostic imaging of breast (principal)

== ENCOUNTER → 2016-11-18 | Outpatient (CLI) | payer BC ==
[2016-11-18 17:58] LABS: URINE APPEARANCE CLEAR (CLEAR); URINE BILIRUBIN NEG (NEG); URINE COLOR YELLOW; URINE EPITHELIAL CELL AUTO 0-5 /lpf (0-5); URINE NITRITE NEG (NEG); URINE PH 5.5 (4.5-7.5); URINE SPECIFIC GRAVITY 1.013 (1.000-1.030); UROBILINOGEN NEG (NEG); ZZUR CULT IF INDIC CLEAN CATCH NO
[2016-11-18 18:09] LABS: MANUAL MICROSCOPIC REQUIRED? NO; REVIEW REQ? NO
== END | disposition home or self-care (01) ==
LOC: C.LABBFT 11:39
PROVIDERS: ATTEND Internal Medicine
DX: R39.9 Unspecified symptoms and signs involving the genitourinary system (principal)

== ENCOUNTER → 2016-12-11 | Outpatient (CLI) | payer BC | END | disposition home or self-care (01) | LOC: C.MAMM 09:28 | PROVIDERS: ATTEND Internal Medicine | DX: M81.0 Age-related osteoporosis without current pathological fracture (principal); M85.852 Other specified disorders of bone density and structure, left thigh; M85.851 Other specified disorders of bone density and structure, right thigh ==

== ENCOUNTER → 2016-12-26 | Outpatient (CLI) | payer BC | END | disposition home or self-care (01) | LOC: C.LABPVFM 10:19 | PROVIDERS: ATTEND Internal Medicine | DX: M81.0 Age-related osteoporosis without current pathological fracture (principal) ==

== ENCOUNTER → 2017-01-28 | Outpatient (CLI) | payer BC ==
--- NOTE | 2017-01-28 14:25 | DIAGNOSTIC IMAGING REPORT ---
CHEST 2 VIEWS ROUTINE CLINICAL HISTORY: R05 Chronic [id number] cough. Dyspnea. COMPARISON STUDY: 01/09/2016 FINDINGS: Mild emphysematous change. Chronic fibronodular change pulmonary apices. Diaphragms are smooth. Degenerative changes thoracic spine. IMPRESSION: Chronic and emphysematous change. No acute or interval process. The above report was generated using voice recognition software. It may contain grammatical, syntax or spelling errors. Electronically signed by: Roshan Ulrich M.D. 01/28/2017 2:24 PM Dictated Date/Time: 01/28/2017 2:22 PM
== END | disposition home or self-care (01) ==
LOC: C.RAD1850 14:01
PROVIDERS: ATTEND Internal Medicine Pulmonary Disease
DX: R05 Cough (principal)

== ENCOUNTER → 2017-03-17 | Outpatient (CLI) | payer BC ==
[~2017-03-17] MED LIST changes: +OPTIRAY 320 IV PRN
--- NOTE | 2017-03-17 13:04 | DIAGNOSTIC IMAGING REPORT ---
CT OF THE CHEST WITH IV CONTRAST CLINICAL HISTORY: Pulmonary nodules. History of TB. COMPARISON STUDY: Chest CT September 24, 2016. TECHNIQUE: Following IV administration of 82 mL of Optiray-320, helical axial images of the chest were obtained. Sagittal and coronal reconstructions were viewed as well as maximal intensity projections on an independent 3-D workstation. A dose lowering technique was utilized adhering to the principles of ALARA. CT DOSE: 268.40 mGycm FINDINGS: No enlarged axillary, mediastinal or hilar lymph nodes are present. The size of the heart is normal. There is no pericardial effusion. No lobar consolidation is present. Multifocal mucoid impaction is noted. Biapical scarring is again noted. Multifocal groundglass and tree-in-bud opacities within lungs have progressed since exam of September 24, 2016 and are most prominent within the anterior segment of the right upper lobe. There is no cavitation. A 7 mm right upper lobe nodule shown image 156 of 306 has developed. This is likely inflammatory/infectious. A 1.1 cm groundglass opacity within the right upper lobe has also developed. The small previously described pulmonary nodules are unchanged. There is no pneumothorax or pleural effusion. A lateral segment hepatic cyst is incidentally noted. IMPRESSION: 1. Interval increase in multifocal groundglass and tree-in-bud nodules since chest CT of September 24, 2016. The findings are likely infectious or inflammatory in etiology and raise the possibility of an atypical mycobacterial infection. A follow-up chest CT in 6 months to ensure resolution is recommended. 2. No thoracic lymphadenopathy. Electronically signed by: Roger Peterson M.D. 03/17/2017 1:02 PM Dictated Date/Time: 03/17/2017 12:53 PM
== END | disposition home or self-care (01) ==
LOC: C.CTS 11:56
PROVIDERS: ATTEND Internal Medicine
DX: R91.8 Other nonspecific abnormal finding of lung field (principal)

== ENCOUNTER → 2017-03-25 | Outpatient (CLI) | payer BC ==
[~2017-03-25] MED LIST changes: -OPTIRAY 320 IV PRN
[2017-03-25 17:52] LABS: ALBUMIN 3.7 gm/dl (3.4-5.0); ALT/SGPT 51 U/L (12-78); BLOOD UREA NITROGEN 25 mg/dl (7-18); CALCIUM 9.4 mg/dl (8.5-10.1); CARBON DIOXIDE 24 mmol/L (21-32); CHOLESTEROL 114 mg/dl (0-200); CREATININE 0.73 mg/dl (0.60-1.20); GLUCOSE 68 mg/dl (70-99); POTASSIUM 4.1 mmol/L (3.5-5.1); SODIUM 137 mmol/L (136-145)
[2017-03-25 18:02] LABS: ALKALINE PHOSPHATASE 95 U/L (45-117); AST/SGOT 38 U/L (15-37); LDL CHOLESTEROL CALCULATED 53 mg/dl; TOTAL PROTEIN 7.6 gm/dl (6.4-8.2)
== END | disposition home or self-care (01) ==
LOC: C.LABBFT 12:42
PROVIDERS: ATTEND Internal Medicine
DX: E03.9 Hypothyroidism, unspecified (principal); E78.5 Hyperlipidemia, unspecified; R91.8 Other nonspecific abnormal finding of lung field

== ENCOUNTER → 2017-04-20 | Outpatient (CLI) | payer BC ==
[~2017-04-20] MED LIST changes: +ATV/1 PO; +RANI150T85 PO; -ZNTT/150 PO
[2017-04-20 12:26] LABS: BASO % 0.8 %; BASO ABS # 0.03 K/uL (0-0.2); EOS ABS # 0.23 K/uL (0-0.5); HEMATOCRIT 51.3 % (37-47); HEMOGLOBIN 16.9 g/dL (12.0-16.0); LYMPH % 32.4 %; LYMPH ABS # 1.24 K/uL (1.2-3.4); MEAN CELL VOLUME 88.9 fL (80-100); MEAN CORPUSCULAR HEMOGLOBIN 29.3 pg (25-34); MEAN CORPUSCULAR HGB CONC 32.9 g/dl (32-36); MEAN PLATELET VOLUME 10.4 fL (7.4-10.4); MONO % 12.3 %; MONO ABS # 0.47 K/uL (0.11-0.59); NEUT % 48.5 %; NEUT ABS # 1.86 K/uL (1.4-6.5); PLATELET COUNT 153 K/uL (130-400); RED CELL DISTRIBUTION WIDTH CV 14.5 % (11.5-14.5); RED CELL DISTRIBUTION WIDTH SD 46.7 fL (36.4-46.3); WHITE BLOOD COUNT 3.83 K/uL (4.8-10.8)
[2017-04-20 13:40] LABS: CALCIUM 9.5 mg/dl (8.5-10.1); CREATININE 0.86 mg/dl (0.60-1.20)
== END | disposition home or self-care (01) ==
LOC: C.LABPVFM 09:01
PROVIDERS: ATTEND Internal Medicine Rheumatology
DX: M81.0 Age-related osteoporosis without current pathological fracture (principal); M15.4 Erosive (osteo)arthritis; E61.8 Deficiency of other specified nutrient elements; E55.9 Vitamin D deficiency, unspecified

== ENCOUNTER → 2017-04-22 | Outpatient (CLI) | payer BC ==
[~2017-04-22] MED LIST changes: +CIPR1TAB10 PO; +ENOX40IN SQ; +SULF1TAB92 PO
--- NOTE | 2017-04-22 15:14 | MAMMOGRAPHY REPORT ---
UNILATERAL RIGHT DIGITAL DIAGNOSTIC MAMMOGRAM TOMOSYNTHESIS WITH CAD: 04/22/2017 CLINICAL HISTORY: 71-year-old woman presents for follow-up in the right breast for a small cluster of coarse heterogeneous calcifications in the upper outer quadrant. TECHNIQUE: Right CC and MLO 2-D and tomosynthesis images, spot magnification right CC and ML views we re obtained. Current study was also evaluated with a Computer Aided Detection (CAD) system. COMPARISON: Comparison is made to exams dated: 10/23/2016 mammogram, 10/13/2016 mammogram, 10/12/2015 m ammogram, 10/09/2014 mammogram, 10/07/2013 mammogram, and 10/06/2012 mammogram - [facility]. BREAST COMPOSITION: There are scattered areas of fibroglandular density in the right breast. FINDINGS: There is a 6 mm cluster of coarse heterogeneous calcifications and associated focal asymmet ry in the upper outer middle one third of the right breast. Although the calcifications are slowly i ncreasing in number comparing to prior mammograms, when evaluating the 2009 mammogram, the associated nodular focal asymmetry was present and is stable in size, suggesting this represents a degenerating fibroadenoma that is calcifying. No other suspicious mass, asymmetry, area of architectural distort ion or suspicious calcifications are identified in the right breast. Given the slow interval increas e in number of the calcifications, another short interval follow-up diagnostic mammogram including ri ght spot magnification views is recommended to ensure longer stability. 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 Given that the calcifications are slowly increasing in number, another short interval follow-up right diagnostic mammogram including s pot magnification views is recommended in 6 months, to ensure longer stability. Annual left mammogra phy will also be due at that time. These results and recommendations were discussed with the patient at the time of the exam. Approximately 10% of breast cancers are not detected with mammography. A negative mammographic report should not delay biopsy if a clinically suggestive mass is present. Mima Watson M.D. ay/:04/22/2017 09:12:25 [employer] Mold: Anuradha PHILIPPE(R)(M), [facility] letter sent: Follow Up Recommended 3 BI-RADS Code: ACR-BI-RADS Category 3: Probably Benign
== END | disposition home or self-care (01) ==
LOC: C.MAMM 08:37
PROVIDERS: ATTEND Obstetrics & Gynecology
DX: R92.1 Mammographic calcification found on diagnostic imaging of breast (principal)

== ENCOUNTER → 2017-04-27 | Outpatient (CLI) | payer BC ==
[~2017-04-27] MED LIST changes: -TROS20TA3 PO
== END | disposition home or self-care (01) ==
LOC: C.LABPVFM 18:16
PROVIDERS: ATTEND Family Medicine
DX: N39.0 Urinary tract infection, site not specified (principal)

== ENCOUNTER → 2017-05-01 | Day surgery (SDC) | payer BC ==
[2017-04-23 15:31] VITALS: BMI 24.0
[~2017-05-01] VITALS: Ht 167.6 cm; Wt 69.1 kg
[~2017-05-01] MED LIST changes: +ATROPINE SULFATE 0.1 MG/ML 5ML SYR IV PRN; +LACTATED RINGER'S 1000ML 1,000 ML IV SCH; +ONDANSETRON INJ 2 MG/ML 2 ML VIAL IV PRN
[2017-05-01 05:45] VITALS: BP 117/75; PULSE 87; TEMP 36.9; O2SAT 93; Ht 167.6 cm; Wt 69.1 kg
[2017-05-01 06:02] LABS: PTT PATIENT 26.5 SECONDS (21.0-31.0)
--- NOTE | 2017-05-01 06:58 | History and Physical ---
History & Physical Date May 01, 2017. History of Present Illness This is a 71-year-old lifetime non-smoker developed a cough in October 2016 after coming back from [place]. Cough has been persistent although does wax and wane. Patient denies hemoptysis. Her cough has not been productive. She has had some weight loss and but no night sweats. She is under very stressful time as her recently at home on hospice from metastatic bladder cancer. Patient has a history of tuberculosis treated at the age of 16. [address] Lion Eastman asked if I would evaluate her for possible bronchoscopy. She had some mildly enlarged mediastinal lymph nodes and were going to perform an endobronchial ultrasound and a navigational bronchoscopy. I had a long talk with her in the office on 03/24/2017 and had a long talk with the patient and her son today on 05-01-17. Past Medical/Surgical History Medical Problems: (1) Anxiety (2) Diverticulosis Colon (W/O Ment Of Hemorrhage) (3) Esophageal Reflux (4) Essential Thrombocythemia (5) Hypercholesteremia (6) Hyperlipidemia Nec/Nos (7) Osteoarthritis (8) PERFORATION OF INTESTINE (9) PERSONAL HISTORY OF PULMONARY EMBOLISM (10) Personal History Of Tuberculosis (11) POLYCYTHEMIA VERA (12) Polycythemia Vera (13) Rheumatic fever (14) VENOUS THROMBOSIS NEC Surgical Problems: (1) Left rotator cuff tear (2) Rotator cuff tear, right Additional History Hepatic Disease: No Endocrine Disorder: No Kidney Disease: No Hypertension: No Heart Disease: No Bleeding Tendencies: Yes Infectious Diseases: No Allergies Coded Allergies: Penicillins (Verified Allergy, Severe, EYES SWELL SHUT, 05/01/17) CI Pigment Blue 63 (Verified Allergy, Unknown, UNKNOWN -ON MEDICAL RECORD , 05/01/17) Fesoterodine (Verified Allergy, Unknown, UNKNOWN -ON MEDICAL RECORD, ) Lecithin (Verified Allergy, Unknown, UNKNOWN -ON MEDICAL RECORD, 05/01/17) Mirabegron (Verified Allergy, Unknown, UNKNOWN-ON MEDICAL RECORD, 05/01/17) Alendronate (Verified Adverse Reaction, Intermediate, REFLUX ESOPHAGITIS/ CHEST PAIN, 05/01/17) Bisphosphonates (Verified Adverse Reaction, Intermediate, REFLUX ESOPHAGITIS/CHEST PAIN (FOSAMAX AND BONIVA), 05/01/17) Ciprofloxacin (Verified Adverse Reaction, Intermediate, n/v/d, 05/01/17) Morphine (Verified Adverse Reaction, Intermediate, vomiting, 05/01/17) Ibandronic Acid (Verified Adverse Reaction, Unknown, ESOPHAGITIS, 05/01/17) Home Medications Scheduled Aspirin (Aspirin Ec), 81 MG PO QAM Atorvastatin (Lipitor), 20 MG PO QAM Celecoxib (CeleBREX), 200 MG PO BID Cholecalciferol (Vitamin D), 1 TAB PO QAM Cyanocobalamin (Vitamin B-12), 500 MCG PO QAM Enoxaparin (Lovenox), 40 MG SQ DAILY Home O2 Therapy (Oxygen), 1 LITER NA HS Krill Oil (Krill Oil), 1 CAP PO BID Levothyroxine Sodium (Synthroid), 75 MCG PO QAM Lorazepam (Ativan), 1 MG PO HS Ranitidine (Zantac), 150 MG PO BID Trimethoprim/Sulfamethoxazole (Bactrim 400MG/80MG), 1 TAB PO Q12H Warfarin Sodium (Coumadin), 5 MG PO 3XWK Warfarin Sodium (Coumadin), 7.5 MG PO 4XWK [Potassium ], 99 MG PO BID Scheduled PRN Acetaminophen (Tylenol), 1 TAB PO Q8 PRN for Pain Baclofen (Baclofen), 1 TAB PO DAILY PRN for Muscle Spasms Zolpidem Tartrate (Ambien), 0.5-1 TAB PO HS PRN for Sleep Physical Examination Skin: warm/dry Eyes: normal inspection ENT: normal ENT inspection Head: normocephalic Neck: supple, no adenopathy, trachea midline Respiratory/Chest: lungs clear, normal breath sounds, no respiratory distress Cardiovascular: regular rate, rhythm, no edema, no murmur Abdomen / GI: normal bowel sounds, non tender Extremities: normal inspection, normal range of motion Neurologic/Psych: no motor/sensory deficits, alert, normal reflexes, oriented x 3 Diagnosis LUNG INFLITRATES WITH MEDIASTINAL LYMPHADENOPATHY Plan of Treatment Endobronchial ultrasound with navigational bronchoscopy and washings.
--- NOTE | 2017-05-01 07:40 | Discharge Instructions ---
Discharge Instructions Date of Service May 01, 2017. Visit Reason for Visit: Right Lung Nodules Discharge Discharge Diagnosis / Problem: Right Lung Nodules Discharge Goals Goal(s): Learn about illness Activity Recommendations Activity Limitations: resume your previous activity (in 24 hours) Anesthesia . Post Anesthesia Instructions: If you have had General Anesthesia or IV Sedation: * Do not drive today. * Resume driving when surgeon permits. * Do not make important decisions or sign legal documents today. * Call surgeon for: 1. Temperature elevations greater than 101 degrees F. 2. Uncontrollable pain. 3. Excessive bleeding. 4. Persistent nausea and vomiting. 5. Medication intolerance (nausea, vomiting or rash). * For nausea and vomiting use only clear liquids such as: tea, soda, bouillon until nausea subsides, then gradually increase diet as tolerated. * If you have any concerns or questions, call your surgeon's office. If physician is unavailable and it is an emergency, call 911 or go to the nearest emergency room. . Instructions / Follow-Up Instructions / Follow-Up 1. You may cough up some blood. Call physician if excessive amount noted. 2. Keep your scheduled appointmetn with Dr. Collins on May 07, 2017 @ 11:15. Diet Recommendations Recommended Home Diet: resume previous diet Pending Studies Studies pending at discharge: no Medical Emergencies . Who to Call and When: Medical Emergencies: If at any time you feel your situation is an emergency, please call 911 immediately. . Non-Emergent Contact Non-Emergency issues call your: Surgeon Call Non-Emergent contact if: you have a fever, your pain is not controlled . . "Provider Documentation" section prepared by Artie Brooks. .
--- NOTE | 2017-05-01 08:32 | [facility] Post Operative Brief Note ---
Immediate Operative Summary Operative Date May 01, 2017. Pre-Operative Diagnosis Right lung parenchymal abnormalities Post-Operative Diagnosis Same Procedure(s) Performed Navigational Bronchoscopy with Biopsies; Endobronchial Ultrasound Surgeon Dr Collins Gear Hobber Surgeon(s) None Estimated Blood Loss 2ml Findings Consistent with Post-Op Diagnosis Specimens All labs handled by respiratory and lab Drains None Anesthesia Type General Complication(s) none Disposition Disposition: Recovery Room / PACU
--- NOTE | 2017-05-01 08:37 | DIAGNOSTIC IMAGING REPORT ---
CHEST 1 VIEW FRONTAL CLINICAL HISTORY: NAVIGATIONAL BRONCH bronchoscopy TECHNIQUE: Image intensifier COMPARISON STUDY: None FINDINGS: Image intensifier utilized for navigational bronchoscopy IMPRESSION: Image intensifier utilized for navigational bronchoscopy. The above report was generated using voice recognition software. It may contain grammatical, syntax or spelling errors. Electronically signed by: Roshan Ulrich M.D. 05/01/2017 8:35 AM Dictated Date/Time: 05/01/2017 8:35 AM
--- NOTE | 2017-05-01 09:38 | Anesthesiology Progress Note ---
Anesthesia Post Op Note Date & Time May 01, 2017 at 09:38 Vital Signs Pain Intensity: 0 Vital Signs Past 12 Hours Date Time Temp Pulse Resp B/P (MAP) Pulse Ox O2 Delivery O2 Flow Rate FiO2 05/01/17 09:29 36.9 71 19 97/60 100 Oxymask 2 05/01/17 09:26 75 22 97/60 92 05/01/17 09:26 75 22 05/01/17 09:21 73 19 05/01/17 09:21 72 19 90/57 95 05/01/17 09:16 77 16 97/58 92 05/01/17 09:16 78 16 05/01/17 09:11 78 22 98/61 97 05/01/17 09:11 78 22 05/01/17 09:06 84 20 05/01/17 09:06 84 20 110/64 92 05/01/17 09:05 85 21 92 05/01/17 09:05 85 21 05/01/17 09:01 109/66 05/01/17 09:00 85 21 94 05/01/17 09:00 85 21 05/01/17 08:56 105/67 05/01/17 08:55 90 20 05/01/17 08:55 90 20 95 05/01/17 08:51 105/63 05/01/17 08:50 93 17 05/01/17 08:50 93 17 100 05/01/17 08:46 100/61 05/01/17 08:45 95 21 05/01/17 08:45 36.3 95 20 100/61 96 Oxymask 10 05/01/17 08:45 95 21 95 05/01/17 05:45 36.9 87 18 117/75 (89) 93 Room Air Notes Mental Status: alert / awake / arousable, participated in evaluation Pt Amnestic to Procedure: Yes Nausea / Vomiting: adequately controlled Pain: adequately controlled Airway Patency, RR, SpO2: stable & adequate BP & HR: stable & adequate Hydration State: stable & adequate Anesthetic Complications: no major complications apparent
[2017-05-01 09:45] VITALS: BP 99/63; PULSE 77; TEMP 37; O2SAT 95
--- NOTE | 2017-05-01 09:45 | DIAGNOSTIC IMAGING REPORT ---
CHEST ONE VIEW PORTABLE CLINICAL HISTORY: FOB COMPARISON STUDY: 01/28/2017 FINDINGS: Mild chronic emphysematous and interstitial change. No acute or superimposed infiltrative process. Degenerative and postoperative change of the shoulders considered stable. IMPRESSION: Unchanging emphysematous and chronic interstitial change. No acute process. The above report was generated using voice recognition software. It may contain grammatical, syntax or spelling errors. Electronically signed by: Roshan Ulrich M.D. 05/01/2017 9:44 AM Dictated Date/Time: 05/01/2017 9:42 AM
[2017-05-01 10:15] VITALS: BP 101/62; PULSE 81; TEMP 36.6; O2SAT 96
--- NOTE | 2017-05-01 10:49 | OPERATIVE REPORT ---
DATE OF OPERATION: 05/01/2017 PREOPERATIVE DIAGNOSIS: Right upper lobe mass with mild mediastinal adenopathy. POSTOPERATIVE DIAGNOSIS: Same. PROCEDURE: 1. Endobronchial ultrasound with biopsy of right level 4 and level 7 nodes. 2. Electromagnetic navigational bronchoscopy with brushings and needle biopsies of right upper lobe mass. 3. Cell washings of the right upper lobe, right lower lobe, left upper lobe bronchi. SURGEON: Damian Collins MD CLOTH WEIGHER: Lion Urban, respiratory therapy. ANESTHESIA: General anesthesia endotracheal intubation. INDICATION FOR PROCEDURE AND FINDINGS: Jeniffer Coyle is a 71-year-old woman who developed a cough several months ago which is now resolved. She has a small mass in her right upper lobe as well as some left upper lobe inflammatory changes. It is interesting that she has a history of tuberculosis treated at age 16 in the [facility]. She has a cough which is nonproductive. Dr. Lion Eastman has worked her up and felt that a bronchoscopy and biopsy of this right upper lobe mass was indicated. On 05/01/2017, the patient was brought to the operating room and underwent an uncomplicated endobronchial ultrasound. She really had very little in the way of any lymphadenopathy. I did biopsy of level 4 area, but we really did not see much of the node. We did not get lymphocytes on a rapid onsite evaluation. We did biopsy level 7 nodes and there were lymphocytes and interestingly enough there were granulomas present. I then biopsied the right upper lobe lesion. We biopsied this several times and did washings. Also, did washings of the right lower lobe and the washings of the left upper lobe. She tolerated it very well with very little in the way of bleeding. DESCRIPTION OF PROCEDURE: The patient brought to the operating room, laid in supine position. General anesthesia induced, endotracheal intubation was performed. After appropriate timeout had been called and clindamycin been given, an endobronchial ultrasound bronchoscope was placed. I saw no endobronchial lesions. We were down to tertiary airways. I inflated the balloon under the ultrasound. We saw very little in the way of any lymphadenopathy in the right level 4, left level 4 areas. I did biopsy the right level 4 areas but we just got benign bronchial epithelium. These lymph nodes were very small. They were down the level 7 node and again these were small, but I did biopsy it several times when we got lymphocytes back on these. We also saw granulomas within these lymphocytes. We had very little in the way of bleeding. I elected to stop. There really was very little in the way of adenopathy. Fiberoptic bronchoscope was then placed after the endobronchial ultrasound bronchoscope was removed. There was a scant amount of blood which was suctioned out and we registered the airways. I then went out the upper lobe and we came upon this lesion rather easily. I placed a radial ultrasound probe and appeared to be were within this mass. I then did multiple brushes as well as needle biopsies and we saw granulomas in this also. There were cultures sent of not only the lymph nodes, but also from the tissue biopsies. I then irrigated out this segment of the upper lobe and sent that off for appropriate cultures and stains. I then did the same for the right lower lobe. I then irrigated out the left upper lobe. She tolerated it quite well. We had no bleeding at the conclusion of the case. I removed the bronchoscope without difficulty. She was awakened without difficulty. I attest to the content of the Intraoperative Record and any orders documented therein. Any exception s are noted below.
== END | disposition home or self-care (01) ==
LOC: C.ACU 05:14
PROVIDERS: ATTEND Surgery
DX: R91.8 Other nonspecific abnormal finding of lung field (principal); R59.0 Localized enlarged lymph nodes; K21.9 Gastro-esophageal reflux disease without esophagitis; D47.3 Essential (hemorrhagic) thrombocythemia; E78.00 Pure hypercholesterolemia, unspecified; E78.5 Hyperlipidemia, unspecified; M19.90 Unspecified osteoarthritis, unspecified site; D45 Polycythemia vera; Z86.718 Personal history of other venous thrombosis and embolism; Z88.1 Allergy status to other antibiotic agents; Z88.5 Allergy status to narcotic agent; Z86.711 Personal history of pulmonary embolism; Z99.81 Dependence on supplemental oxygen; Z86.11 Personal history of tuberculosis; Z79.82 Long term (current) use of aspirin; Z79.01 Long term (current) use of anticoagulants

== ENCOUNTER 2017-05-11 14:39 | Emergency (ER) | payer BC ==
[~2017-05-11] VITALS: Ht 170.2 cm; Wt 68.7 kg
[~2017-05-11 14:39] MED LIST changes: -ACET-1256 PO; -ASPI81TA28 PO; -ATOR-22 PO; -ATROPINE SULFATE 0.1 MG/ML 5ML SYR IV PRN; -ATV/1 PO; -CHOL20009 PO; -CIPR1TAB10 PO; -CLB/200 PO; -CYAN500T PO; -KRIL1000 PO; -LACTATED RINGER'S 1000ML 1,000 ML IV SCH; -LRS10 PO; -ONDANSETRON INJ 2 MG/ML 2 ML VIAL IV PRN; -ZOLP5TAB PO
[2017-05-11 14:48] VITALS: TEMP 36.8; Ht 170.2 cm; Wt 68.7 kg
[2017-05-11] MEDS ORDERED: ACETAMINOPHEN 500 MG TAB PO STA (14:57)
--- NOTE | 2017-05-11 15:06 | EMERGENCY ROOM VISIT NOTE ---
History Report prepared by Nico: Arun Gutierrez Under the Supervision of: Dr. Blaine Young M.D. First contact with patient: 14:51 Chief Complaint: FALL Stated Complaint: HEADACHE, ON COUMADIN AND FELL AND HIT HEAD History of Present Illness The patient is a 71 year old female who presents to the Emergency Room with complaints of a sudden fall occurring around two hours ago. The patient states that she went to sit on the chair and missed it, and she hit her tailbone and then the back of her head. She states that she is currently having neck pain and a headache, and she rates her discomfort as a 1/10 in severity. She additionally notes that she is having some vision issues, and she states that has been feeling disoriented. The patient denies any loss of consciousness, leg pain, arm pain, nausea, and dizziness. She notes that she is currently on Coumadin, and she states that her level today was 2.5 at the Coumadin clinic. The patient reports that she has not been sick recently. Source of History: patient Onset: two hours ago Symptom Intensity: 1/10 Quality: other (fall) Timing: other (sudden) Associated Symptoms: + headache, + neck pain, No LOC, No nausea Note: Associated symptoms: vision issues and disoriented. Review of Systems See HPI for pertinent positives & negatives. A total of 10 systems reviewed and were otherwise negative. Past Medical & Surgical Medical Problems: (1) Anxiety (2) Diverticulosis Colon (W/O Ment Of Hemorrhage) (3) Esophageal Reflux (4) Essential Thrombocythemia (5) Hypercholesteremia (6) Hyperlipidemia Nec/Nos (7) Osteoarthritis (8) PERFORATION OF INTESTINE (9) PERSONAL HISTORY OF PULMONARY EMBOLISM (10) Personal History Of Tuberculosis (11) POLYCYTHEMIA VERA (12) Polycythemia Vera (13) Rheumatic fever (14) VENOUS THROMBOSIS NEC Surgical Problems: (1) Left rotator cuff tear (2) Rotator cuff tear, right Family History Cancer Heart disease Stroke MOTHER, Onset:60 years & older GRANDMOTHER, Onset:60 years & older aunt, Onset:60 years & older Social History Smoking Status: Never Smoker Alcohol Use: occasionally Drug Use: none Marital Status: Housing Status: lives with family Occupation Status: retired Current/Historical Medications Scheduled Aspirin (Aspirin Ec), 81 MG PO QAM Atorvastatin (Lipitor), 20 MG PO QAM Celecoxib (CeleBREX), 200 MG PO BID Cholecalciferol (Vitamin D), 1 TAB PO QAM Cyanocobalamin (Vitamin B-12), 500 MCG PO QAM Krill Oil (Krill Oil), 1 CAP PO BID Levothyroxine Sodium (Synthroid), 75 MCG PO QAM Ranitidine (Zantac), 150 MG PO BID Warfarin Sodium (Coumadin), 5 MG PO 3XWK Warfarin Sodium (Coumadin), 7.5 MG PO 4XWK [Potassium ], 99 MG PO BID Scheduled PRN Acetaminophen (Tylenol), 1 TAB PO Q8 PRN for Pain Baclofen (Baclofen), 1 TAB PO DAILY PRN for Muscle Spasms Lorazepam (Ativan), 1 MG PO HS PRN for Sleep Zolpidem Tartrate (Ambien), 0.5-1 TAB PO HS PRN for Sleep Allergies Coded Allergies: Penicillins (Verified Allergy, Severe, EYES SWELL SHUT, 05/11/17) CI Pigment Blue 63 (Verified Allergy, Unknown, UNKNOWN -ON MEDICAL RECORD , 05/11/17) Fesoterodine (Verified Allergy, Unknown, UNKNOWN -ON MEDICAL RECORD, ) Lecithin (Verified Allergy, Unknown, UNKNOWN -ON MEDICAL RECORD, 05/11/17) Mirabegron (Verified Allergy, Unknown, UNKNOWN-ON MEDICAL RECORD, 05/11/17) Alendronate (Verified Adverse Reaction, Intermediate, REFLUX ESOPHAGITIS/ CHEST PAIN, 05/11/17) Bisphosphonates (Verified Adverse Reaction, Intermediate, REFLUX ESOPHAGITIS/CHEST PAIN (FOSAMAX AND BONIVA), 05/11/17) Ciprofloxacin (Verified Adverse Reaction, Intermediate, n/v/d, 05/11/17) Morphine (Verified Adverse Reaction, Intermediate, vomiting, 05/11/17) Ibandronic Acid (Verified Adverse Reaction, Unknown, ESOPHAGITIS, 05/11/17) Physical Exam Vital Signs Date Time Temp Pulse Resp B/P (MAP) Pulse Ox O2 Delivery O2 Flow Rate FiO2 05/11/17 16:04 88 18 118/78 96 05/11/17 14:48 36.8 91 18 115/76 96 Room Air Physical Exam GENERAL: Patient is in no acute distress. HEENT: No acute trauma, normocephalic atraumatic, mucous membranes moist, no nasal congestion, no scleral icterus. NECK: Tender to the posterior superior C-spine. No bony step off. No stridor, no adenopathy, no meningismus, trachea is midline. LUNGS: Clear to auscultation bilaterally, no wheeze, no rhonchi, breath sounds equal. HEART: Without murmurs gallops or rubs, regular rate and rhythm. ABDOMEN: Soft, nontender, bowel sounds positive, no hernias, no peritonitis. BUTTOCK: Tender over the entire sacrum and coccyx although all bones are stable. No contusion seen. EXTREMITIES: No cyanosis or edema, full range of motion of all the joints without pain or difficulty, no signs for acute trauma. NEUROLOGIC: Oriented x 3, no acute motor or sensory deficits, no focal weakness. GCS15 SKIN: No rash, no jaundice, no diaphoresis. Medical Decision & Procedures ER Provider Diagnostic Interpretation: Radiology results as stated below per my review and radiologist interpretation: HEAD WITHOUT CONTRAST (CT) CT DOSE: HISTORY: Trauma. Mental status change. fall, on coumadin, hit head TECHNIQUE: Multiaxial CT images of the head were performed without the use of intravenous contrast. A dose lowering technique was utilized adhering to the principles of ALARA. Comparison: 04/06/2016 Findings: The paranasal sinuses and mastoid air cells are clear. The calvarium and skull base are intact. The ventricles and sulci are within normal limits. There is no mass, hematoma, midline shift, or acute infarct. Impression: No acute intracranial abnormality. The above report was generated using voice recognition software. It may contain grammatical, syntax or spelling errors. Electronically signed by: Roshan Ulrich M.D. 05/11/2017 3:31 PM Dictated Date/Time: 05/11/2017 3:30 PM SACRUM COCCYX MIN 2 VIEWS CLINICAL HISTORY: fall, pain trauma COMPARISON STUDY: None FINDINGS: No acute bony abnormality. Mild degenerative change of the low lumbar spine and sacroiliac joints. Sacral foramina are symmetric. IMPRESSION: No acute process. The above report was generated using voice recognition software. It may contain grammatical, syntax or spelling errors. Electronically signed by: Roshan Ulrich M.D. 05/11/2017 3:45 PM Dictated Date/Time: 05/11/2017 3:43 PM CERVICAL SPINE W/O CT DOSE: 1010.53 mGy.cm HISTORY: Trauma fall, now has neck pain TECHNIQUE: Multiaxial CT images of the cervical spine were performed and reformatted in the sagittal and coronal plane without the use of contrast. A dose lowering technique was utilized adhering to the principles of ALARA. COMPARISON: None. FINDINGS: No fractures. No subluxation. Prevertebral soft tissues and the C1-C2 interval are intact. No pneumothorax. IMPRESSION: No fractures within the cervical spine. Moderate degenerative disc change. The above report was generated using voice recognition software. It may contain grammatical, syntax or spelling errors. Electronically signed by: Roshan Ulrich M.D. 05/11/2017 3:33 PM Dictated Date/Time: 05/11/2017 3:32 PM Medications Administered Medications (Trade) Dose Ordered Sig/Bambi Route Start Time Stop Time Status Last Admin Dose Admin Acetaminophen (Tylenol Tab) 1,000 mg NOW STAT PO 05/11/17 14:57 05/11/17 15:01 DC 05/11/17 15:19 500 MG ED Course 1451: The patient was evaluated in room B11. A complete history and physical exam was performed. 1457: Tylenol Tab 1000mg PO 1551: Reevaluated the patient. Discussed results and discharge instructions: She verbalized understanding and agreement. The patient is ready for discharge. Medical Decision Differential diagnoses include: Intracranial bleeding, skull fracture, C-spine fracture, cervical strain, sacral or coccyx fracture, and sacral contusion. The patient presents after falling and striking her head. She also has some neck pain and back pain. Her biggest concern was her head as she does take Coumadin. Her INR today was recorded at 2.5. She was sent by the Coumadin clinic to our ER. The patient looks well. Brain CT does not show any skull fracture, there is no acute intracranial bleeding. C-spine CT shows no fracture, some arthritis was seen. Sacral and coccyx films show no fractures. On my exam, there was no evidence for injury to the back, chest, abdomen or extremities. The patient has suffered head trauma, a cervical strain and a sacral contusion from this fall. She was reassured by her testing. She did receive some oral Tylenol and an ice pack. She was discharged. Head Trauma GCS Score: 15 Medication Reconcilliation Current Medication List: was personally reviewed by me Blood Pressure Screening Patient's blood pressure: Normal blood pressure Impression Primary Impression: Head trauma Additional Impressions: Cervical strain Sacral contusion Scribe Attestation The scribe's documentation has been prepared under my direction and personally reviewed by me in its entirety. I confirm that the note above accurately reflects all work, treatment, procedures, and medical decision making performed by me. Departure Information Dispostion Home / Self-Care Referrals Nolberto Wiley M.D. (PCP) Forms HOME CARE DOCUMENTATION FORM, IMPORTANT VISIT INFORMATION Patient Instructions My [facility] Additional Instructions ice to the sore areas tylenol for pain no fracture or bleeding noted today by our imaging return for worsening symptoms, worsening headache, vomiting Problem Qualifiers
[2017-05-11] MEDS ORDERED: CLB/200 PO (15:33)
--- NOTE | 2017-05-11 15:33 | DIAGNOSTIC IMAGING REPORT ---
HEAD WITHOUT CONTRAST (CT) CT DOSE: HISTORY: Trauma. Mental status change. fall, on coumadin, hit head TECHNIQUE: Multiaxial CT images of the head were performed without the use of intravenous contrast. A dose lowering technique was utilized adhering to the principles of ALARA. Comparison: 04/06/2016 Findings: The paranasal sinuses and mastoid air cells are clear. The calvarium and skull base are intact. The ventricles and sulci are within normal limits. There is no mass, hematoma, midline shift, or acute infarct. Impression: No acute intracranial abnormality. The above report was generated using voice recognition software. It may contain grammatical, syntax or spelling errors. Electronically signed by: Roshan Ulrich M.D. 05/11/2017 3:31 PM Dictated Date/Time: 05/11/2017 3:30 PM
--- NOTE | 2017-05-11 15:34 | DIAGNOSTIC IMAGING REPORT ---
CERVICAL SPINE W/O CT DOSE: 1010.53 mGy.cm HISTORY: Trauma fall, now has neck pain TECHNIQUE: Multiaxial CT images of the cervical spine were performed and reformatted in the sagittal and coronal plane without the use of contrast. A dose lowering technique was utilized adhering to the principles of ALARA. COMPARISON: None. FINDINGS: No fractures. No subluxation. Prevertebral soft tissues and the C1-C2 interval are intact. No pneumothorax. IMPRESSION: No fractures within the cervical spine. Moderate degenerative disc change. The above report was generated using voice recognition software. It may contain grammatical, syntax or spelling errors. Electronically signed by: Roshan Ulrich M.D. 05/11/2017 3:33 PM Dictated Date/Time: 05/11/2017 3:32 PM
--- NOTE | 2017-05-11 15:46 | DIAGNOSTIC IMAGING REPORT ---
SACRUM COCCYX MIN 2 VIEWS CLINICAL HISTORY: fall, pain trauma COMPARISON STUDY: None FINDINGS: No acute bony abnormality. Mild degenerative change of the low lumbar spine and sacroiliac joints. Sacral foramina are symmetric. IMPRESSION: No acute process. The above report was generated using voice recognition software. It may contain grammatical, syntax or spelling errors. Electronically signed by: Roshan Ulrich M.D. 05/11/2017 3:45 PM Dictated Date/Time: 05/11/2017 3:43 PM
[2017-05-11 16:04] VITALS: BP 118/78; PULSE 88; O2SAT 96
[2017-05-12] MEDS ORDERED: ASPI81TA28 PO (01:48)
[2017-05-12] MEDS ORDERED: ZOLP5TAB PO (12:00)
[2017-05-12] MEDS ORDERED: KRIL1000 PO (12:00)
[2017-05-12] MEDS ORDERED: ACET-1256 PO (12:00)
[2017-05-12] MEDS ORDERED: CHOL20009 PO (12:00)
[2017-05-12] MEDS ORDERED: ATV/1 PO (13:16)
[2017-05-12] MEDS ORDERED: CYAN500T PO (13:31)
[2017-05-12] MEDS ORDERED: LRS10 PO (13:31)
[2017-05-12] MEDS ORDERED: ATOR-22 PO (15:26)
[2017-05-12] MEDS ORDERED: CELE1CAP30 PO (21:49)
[2017-05-12] MEDS ORDERED: SYN75 PO (21:49)
[2017-05-12] MEDS ORDERED: WARF-246 PO (21:49)
[2017-05-12] MEDS ORDERED: RANI150T2 PO (21:49)
[2017-05-12] MEDS ORDERED: WARF-284 PO (21:49)
[2017-05-12] MEDS ORDERED: POTA99TA PO (21:52)
[2017-05-12] MEDS ORDERED: CLR10 PO (21:55)
== END 2017-05-11 16:06 | disposition home or self-care (01) ==
LOC: C.EDB 14:40
DX: S09.90XA Unspecified injury of head, initial encounter (principal); S30.0XXA Contusion of lower back and pelvis, initial encounter; S16.1XXA Strain of muscle, fascia and tendon at neck level, initial encounter; W19.XXXA Unspecified fall, initial encounter; Y92.9 Unspecified place or not applicable; F41.9 Anxiety disorder, unspecified; K57.30 Diverticulosis of large intestine without perforation or abscess without bleeding; K21.9 Gastro-esophageal reflux disease without esophagitis; E78.00 Pure hypercholesterolemia, unspecified; E78.5 Hyperlipidemia, unspecified; M19.90 Unspecified osteoarthritis, unspecified site; Z86.711 Personal history of pulmonary embolism; D45 Polycythemia vera; D47.3 Essential (hemorrhagic) thrombocythemia; Z86.718 Personal history of other venous thrombosis and embolism; Z80.9 Family history of malignant neoplasm, unspecified; Z82.49 Family history of ischemic heart disease and other diseases of the circulatory system; Z79.82 Long term (current) use of aspirin; Z79.01 Long term (current) use of anticoagulants; Z79.899 Other long term (current) drug therapy; Z88.0 Allergy status to penicillin; Z88.1 Allergy status to other antibiotic agents; Z88.5 Allergy status to narcotic agent; Z88.8 Allergy status to other drugs, medicaments and biological substances

== ENCOUNTER 2017-05-12 19:59 | Emergency (ER) | payer BC ==
[~2017-05-12 19:59] MED LIST changes: +ACET-1256 PO; +ASPI81TA28 PO; +ATOR-22 PO; +ATV/1 PO; +CHOL20009 PO; +CLB/200 PO; +CYAN500T PO; -ENOX40IN SQ; +KRIL1000 PO; +LRS10 PO; -OXGN; -SULF1TAB92 PO; +ZOLP5TAB PO
[2017-05-12 20:05] VITALS: TEMP 37.3; Ht 170.2 cm
[2017-05-12] MEDS ORDERED: ONDANSETRON 2MG ODT PO STA (21:38)
[2017-05-12] MEDS ORDERED: ACETAMINOPHEN 500 MG TAB PO STA (21:38)
[2017-05-12] MEDS ORDERED: SYN75 PO (21:49)
[2017-05-12] MEDS ORDERED: WARF-246 PO (21:49)
[2017-05-12] MEDS ORDERED: RANI150T2 PO (21:49)
[2017-05-12] MEDS ORDERED: CELE1CAP30 PO (21:49)
[2017-05-12] MEDS ORDERED: WARF-284 PO (21:49)
[2017-05-12] MEDS ORDERED: POTA99TA PO (21:52)
[2017-05-12] MEDS ORDERED: CLR10 PO (21:55)
--- NOTE | 2017-05-12 21:56 | DIAGNOSTIC IMAGING REPORT ---
CT OF THE HEAD WITHOUT CONTRAST CLINICAL HISTORY: Fall. Nausea. COMPARISON STUDY: Head CT April 06, 2016 and May 11, 2017. CT DOSE: 537.48 mGy.cm TECHNIQUE: Helical axial images of the head were obtained without IV contrast. Automated exposure control was utilized for the study. A dose lowering technique was utilized adhering to the principles of ALARA. FINDINGS: No acute intracranial hemorrhage, midline shift or mass effect is present. Ventricular system is unremarkable. Basilar cisterns are patent. There are no extra-axial collections. Perkins-white differentiation is maintained. Mild white matter hypodensity suggests small vessel disease. There is no calvarial fracture. IMPRESSION: No acute intracranial findings. Electronically signed by: Roger Peterson M.D. 05/12/2017 9:54 PM Dictated Date/Time: 05/12/2017 9:52 PM
--- NOTE | 2017-05-12 22:23 | EMERGENCY ROOM VISIT NOTE ---
History Report prepared by Nico: Summer Figueredo Under the Supervision of: Dr. Ac Doll D.O. First contact with patient: 21:31 Chief Complaint: FEVER Stated Complaint: HEADACHE,NAUSEA,FEVER History of Present Illness The patient is a 71 year old female who presents to the Emergency Room with complaints of a constant fever starting last night. The patient states that yesterday she was in the ED after a fall in which she hit her head. She reports that she was told to come back to the ED if she became nauseous or her headache worsened. She states that her headache has stayed the same and she has not taken anything for it. She notes that she developed nausea so decided to come back. She states that she had a CT done yesterday of her head that came back normal. She notes that her temperature has been as high as 99.2. The patient complains of a chills, cough, and pain in her tailbone. The patient notes that her cough is from a lung scope she had done a week ago. She states that the cough is worse when lying down. The patient notes that she is on Coumadin. Source of History: patient Onset: last night Position: other (global) Quality: other (fever) Timing: constant Associated Symptoms: + chills, + headache, + cough, + nausea, + back pain ( in her tailbone) Review of Systems See HPI for pertinent positives & negatives. A total of 10 systems reviewed and were otherwise negative. Past Medical & Surgical Medical Problems: (1) Anxiety (2) Diverticulosis Colon (W/O Ment Of Hemorrhage) (3) Esophageal Reflux (4) Essential Thrombocythemia (5) Hypercholesteremia (6) Hyperlipidemia Nec/Nos (7) Osteoarthritis (8) PERFORATION OF INTESTINE (9) PERSONAL HISTORY OF PULMONARY EMBOLISM (10) Personal History Of Tuberculosis (11) POLYCYTHEMIA VERA (12) Polycythemia Vera (13) Rheumatic fever (14) VENOUS THROMBOSIS NEC Surgical Problems: (1) Left rotator cuff tear (2) Rotator cuff tear, right Family History Cancer Heart disease Stroke MOTHER, Onset:60 years & older GRANDMOTHER, Onset:60 years & older aunt, Onset:60 years & older Social History Smoking Status: Never Smoker Alcohol Use: occasionally Drug Use: none Marital Status: Housing Status: lives with family Occupation Status: retired Current/Historical Medications Scheduled Aspirin (Aspirin Ec), 81 MG PO QAM Atorvastatin (Lipitor), 20 MG PO QAM Celecoxib (Celecoxib), 200 MG PO BID Cholecalciferol (Vitamin D), 2,000 INTER.UNIT PO QAM Cyanocobalamin (Vitamin B-12), 500 MCG PO QAM Krill Oil (Krill Oil), 1 CAP PO BID Levothyroxine Sodium (Synthroid), 75 MCG PO QAM Potassium (Potassium), 99 MG PO BID Ranitidine HCl (Ranitidine HCl), 150 MG PO BID Warfarin Sodium (Warfarin Sodium), 7.5 MG PO [id number] Warfarin Sodium (Warfarin Sodium), 5 MG PO [id number] Scheduled PRN Acetaminophen (Tylenol), 500 MG PO Q8 PRN for Pain Baclofen (Baclofen), 10 MG PO DAILY PRN for Muscle Spasm Loratadine (Claritin), 10 MG PO DAILY PRN for Allergy Symptoms Lorazepam (Ativan), 1 MG PO HS PRN for Sleep Zolpidem Tartrate (Ambien), 2.5-5 MG PO HS PRN for Sleep Allergies Coded Allergies: Penicillins (Verified Allergy, Severe, EYES SWELL SHUT, 05/11/17) CI Pigment Blue 63 (Verified Allergy, Unknown, UNKNOWN -ON MEDICAL RECORD , 05/11/17) Fesoterodine (Verified Allergy, Unknown, UNKNOWN -ON MEDICAL RECORD, ) Lecithin (Verified Allergy, Unknown, UNKNOWN -ON MEDICAL RECORD, 05/11/17) Mirabegron (Verified Allergy, Unknown, UNKNOWN-ON MEDICAL RECORD, 05/11/17) Alendronate (Verified Adverse Reaction, Intermediate, REFLUX ESOPHAGITIS/ CHEST PAIN, 05/11/17) Bisphosphonates (Verified Adverse Reaction, Intermediate, REFLUX ESOPHAGITIS/CHEST PAIN (FOSAMAX AND BONIVA), 05/11/17) Ciprofloxacin (Verified Adverse Reaction, Intermediate, n/v/d, 05/11/17) Morphine (Verified Adverse Reaction, Intermediate, vomiting, 05/11/17) Ibandronic Acid (Verified Adverse Reaction, Unknown, ESOPHAGITIS, 05/11/17) Physical Exam Vital Signs Date Time Temp Pulse Resp B/P (MAP) Pulse Ox O2 Delivery O2 Flow Rate FiO2 05/12/17 20:05 37.3 100 18 150/80 92 Room Air Physical Exam CONSTITUTIONAL/VITAL SIGNS: Reviewed / noted above. GENERAL: Non-toxic in appearance. INTEGUMENTARY: Warm, dry, and [place]. HEAD: Normocephalic. EYES: without scleral icterus or trauma. ENT/OROPHARYNX: clear and moist. LYMPHADENOPATHY/NECK: Is supple without lymphadenopathy or meningismus. RESPIRATORY: Lungs clear and equal. CARDIOVASCULAR: Regular rate and rhythm. GI/ABDOMEN: Soft and nontender. No organomegaly or pulsatile mass. No rebound or guarding. Normal bowel sounds. EXTREMITIES: Warm and well perfused. BACK: No CVA tenderness. NEUROLOGICAL: Intact without focal deficits. PSYCHIATRIC: normal affect. MUSCULOSKELETAL: Normally developed with good muscle tone. Medical Decision & Procedures ER Provider Diagnostic Interpretation: Radiology results as stated below per my review and radiologist interpretation: CT OF THE HEAD WITHOUT CONTRAST CLINICAL HISTORY: Fall. Nausea. COMPARISON STUDY: Head CT April 06, 2016 and May 11, 2017. CT DOSE: 537.48 mGy.cm TECHNIQUE: Helical axial images of the head were obtained without IV contrast. Automated exposure control was utilized for the study. A dose lowering technique was utilized adhering to the principles of ALARA. FINDINGS: No acute intracranial hemorrhage, midline shift or mass effect is present. Ventricular system is unremarkable. Basilar cisterns are patent. There are no extra-axial collections. Perkins-white differentiation is maintained. Mild white matter hypodensity suggests small vessel disease. There is no calvarial fracture. IMPRESSION: No acute intracranial findings. Electronically signed by: Roger Peterson M.D. 05/12/2017 9:54 PM Dictated Date/Time: 05/12/2017 9:52 PM Medications Administered Medications (Trade) Dose Ordered Sig/Bambi Route Start Time Stop Time Status Last Admin Dose Admin Acetaminophen (Tylenol Tab) 1,000 mg NOW STAT PO 05/12/17 21:38 05/12/17 21:40 DC 05/12/17 21:44 1,000 MG Ondansetron HCl (Zofran Odt) 4 mg NOW STAT PO 05/12/17 21:38 05/12/17 21:40 DC 05/12/17 21:44 4 MG ED Course 2133: Previous medical records were reviewed. The patient was evaluated in room C7. A complete history and physical examination was performed. 2137: Ordered Zofran Odt 4 mg PO, Tylenol Tab 40726 mg PO. 2224: On reevaluation, the patient is resting comfortably. I discussed the results and findings with the patient. She verbalized agreement of the treatment plan. The patient was discharged home. 2230: Ordered Ondansetron HCl 1 homepack PO. Medical Decision Differential includes: Acute intracranial bleed, trauma, meningitis, encephalitis, increased intracranial pressure, mass or mass effect, facial or dental infection, temporal arteritis, CVA, TIA, acute hypertensive emergency, sinusitis, carbon monoxide exposure. This is a 71-year-old female who presents to the ED with a chief complaint of feeling queasy. The patient reports that she was told by the doctor who saw her yesterday that if she feels queasy she should come back and have a repeat scan of her head. The patient fell and was seen yesterday and had a normal CT scan of the brain. She reports that her INR yesterday morning was 2.5. The patient has no additional symptoms. She did report a "fever" of 99.2. She otherwise denies any significant symptoms. Her physical exam was unremarkable. A CT scan of the brain did not show acute process. She was treated with p.o. Tylenol and p.o. Zofran. She was discharged with a Zofran home pack. She is felt to be stable for discharge. Medication Reconcilliation Current Medication List: was personally reviewed by me Blood Pressure Screening Patient's blood pressure: Elevated blood pressure Blood pressure disposition: Elevated BP felt to be situational Impression Primary Impression: Nausea Additional Impression: Head injury Scribe Attestation The scribe's documentation has been prepared under my direction and personally reviewed by me in its entirety. I confirm that the note above accurately reflects all work, treatment, procedures, and medical decision making performed by me. Departure Information Dispostion Home / Self-Care Referrals Nolberto Wiley M.D. (PCP) Forms HOME CARE DOCUMENTATION FORM, IMPORTANT VISIT INFORMATION Patient Instructions [facility] Additional Instructions Zofran: Allow one tablet to dissolve under the tongue every 6 hours as needed for nausea or vomiting. Take Tylenol for headache. Problem Qualifiers
[2017-05-12] MEDS ORDERED: ONDANSETRON HOME PACK 4MG OD TAB PO ONE (22:30)
[2017-05-12 22:43] VITALS: BP 145/71; PULSE 94; O2SAT 94
== END 2017-05-12 22:44 | disposition home or self-care (01) ==
LOC: C.EDB 20:00 → C.EDC 22:44
DX: R11.0 Nausea (principal); S09.90XA Unspecified injury of head, initial encounter; X58.XXXA Exposure to other specified factors, initial encounter; K57.30 Diverticulosis of large intestine without perforation or abscess without bleeding; D69.3 Immune thrombocytopenic purpura; E78.00 Pure hypercholesterolemia, unspecified; E78.5 Hyperlipidemia, unspecified; M19.90 Unspecified osteoarthritis, unspecified site; D45 Polycythemia vera; K21.9 Gastro-esophageal reflux disease without esophagitis; Z79.01 Long term (current) use of anticoagulants; Z79.82 Long term (current) use of aspirin; Z86.711 Personal history of pulmonary embolism; Z86.718 Personal history of other venous thrombosis and embolism; Z86.11 Personal history of tuberculosis; Z82.3 Family history of stroke; Z88.0 Allergy status to penicillin; Z88.8 Allergy status to other drugs, medicaments and biological substances; Z91.048 Other nonmedicinal substance allergy status; Z88.9 Allergy status to unspecified drugs, medicaments and biological substances; Z88.1 Allergy status to other antibiotic agents; Z88.5 Allergy status to narcotic agent

== ENCOUNTER → 2017-10-19 | Outpatient (CLI) | payer BC ==
[~2017-10-19] MED LIST changes: -ATV/1 PO; +CELE1CAP30 PO; -CLB/200 PO; -LEVO75TA PO; +PANT40TA PO; +POTA99TA PO; -POTASSIUM PO; +PROB1TAB16; +RANI150T2 PO; -RANI150T85 PO; +SYN75 PO; +WARF-246 PO; +WARF-284 PO; -WARF5TAB90 PO; -WARF7.5T PO; -ZOLP5TAB PO
--- NOTE | 2017-10-20 06:59 | MAMMOGRAPHY REPORT ---
BILATERAL DIGITAL DIAGNOSTIC MAMMOGRAM TOMOSYNTHESIS WITH CAD: 10/19/2017 CLINICAL HISTORY: Close follow-up of a grouping of round/punctate microcalcifications and associated focal asymmetry in the right upper outer quadrant. Also time of annual bilateral mammograms. TECHNIQUE: Bilateral CC and MLO 2D and tomosynthesis images, spot magnification right CC and ML views were obtained. Current study was also evaluated with a Computer Aided Detection (CAD) system. COMPARISON: Comparison is made to exams dated: 04/22/2017 mammogram, 10/23/2016 mammogram, 10/13/2016 m ammogram, 10/12/2015 mammogram, 10/09/2014 mammogram, and 10/07/2013 mammogram - [facility] nt. BREAST COMPOSITION: There are scattered areas of fibroglandular density in both breasts. FINDINGS: The glandular tissue pattern of both breasts is stable compared to prior mammograms. There is a 5 mm nodular asymmetry in the left breast posteriorly, along the posterior nipple line on the C C view, that appears very similar to the prior 2015, 201311/19/2012 mammograms, suggesting benignity. There are a few other scattered benign rim calcifications in the breasts. No new suspicious masses , asymmetries, areas of architectural distortion or other groupings of calcifications are identified bilaterally. The spot magnification views of the right breast redemonstrate a 6 mm grouping of punctate and round calcifications with associated focal asymmetry, that are stable to minimally coarsened comparing back to prior spot magnification views obtained on 10/23/2016. 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 Nevertheless, another 12 Month Close follow-up evaluation including spot magnif ication views is recommended to ensure longer stability on the spot magnification views. IMPRESSION: ACR-BI-RADS CATEGORY 3: PROBABLY BENIGN Stable bilateral mammograms, including a stable 6 mm focal asymmetry with associated round and puncta te calcifications in the right upper outer posterior breast. 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 Annual left mammography cailin l also be due at that time. These results and recommendations were discussed with the patient at the time of the exam. Some breast cancers are not detected with mammography. A negative mammographic report should not nadia y biopsy if a clinically suggestive mass is present. Mima Watson M.D. ay/:10/19/2017 12:33:48 Bioinformatics Specialist: RT Quincy(Caryn)(Juan Manuel), [facility] letter sent: Follow Up Recommended 3 BI-RADS Code: ACR-BI-RADS Category 3: Probably Benign
== END | disposition home or self-care (01) ==
LOC: C.MAMM 10:51
PROVIDERS: ATTEND Obstetrics & Gynecology
DX: R92.0 Mammographic microcalcification found on diagnostic imaging of breast (principal)

== ENCOUNTER 2020-11-28 21:47 | Observation (INO) ==
[2020-11-28] MEDS ORDERED: GI COCKTAIL ED USE PO ONE (22:28)
--- NOTE | 2020-11-28 22:33 | Emergency Department Note ---
Impression & Plan Substernal chest pain ED Provider Note Name: SIMI JETER Age: 75 Sex: F Arrives Via: Walk-In Informant: Patient ED Provider: Gilmer Cooley MD Chief Complaint: chest pain Impression: Substernal Chest Pain Medical Decision Makin yr old female without history of CAD though has been on coumadin for 30 yrs for PE/DVT management. Today with increasing substernal chest pressure to bilateral jaw. Similar though more intense than previous GI symptoms thus gi cocktail with minimal improvement. Resolved with slntg/asa following this. EKG with mild lateral/inf st depressions compared to previous. Labs unremarkable with negative trop. CXR OK. Not consistent with dissection and on coumadin with good recent INR thus seems unlikely PE without shortness of breath etc. Given age, family history and symptoms will need cardiac rule out and h ospitalist consulted for further management. Prior Medical Record and Triage/Nursing Notes reviewed by Me Additional history obtained from chart Differentials:Cardiac ischemia, aortic dissection, pulmonary embolism, pneumothorax, pneumonia, pericarditis, myocarditis, esophageal rupture, GERD, cholecystitis, pancreatitis, musculoskeletal, as well as other pathologies. Vital Signs: reviewed and remarkable for wnl Interventions: gi cocktail, asa 324mg, slntg Labs:Reviewed and remarkable for no significant abnormalities Imaging:X ray results are stated below per my interpretation: Chest: 1 view: No infiltrate, no effusion, normal cardiac border. EKG:Per My Interpretation: Indication chest pain: NSR 68 bpm, qtc 431, mild inf/lateral ST depressions. Depressions appear new compared to EKG 04/05/20. No ectopy noted. Cardiac/Tele Monitoring: Cardiac Monitoring: An Order was placed for continuous cardiac monitoring. The monitor shows a rate of 60 with a normal sinus rhythm. Consults:Dr Allegra SOSA Hospitalist Plan: Disposition:Hospitalization. Condition: Good History of Present Illness:75 yr old female arrives for evaluation of chest pain. Patient notes 12 hours of substernal chest pressure with radiation to bilateral jaw. Worse with exertion and laying down. Better with sitting and rest. Notes initially similar to reflux issues though seems more severe than previous. Tonight got lightheaded and dizzy while walking. Denies syncope, shob, palpitations, nausea, vomiting, abdominal pain, back pain, shoulder pain, headache, neck pain, fevers, chills, nor other symptoms. Covid test earlier today which was negative. No medications taken for pain. Called PCP who advised going to ED for evaluation. Patient received Reclast injection last week. She denies previous CAD history. Does have PE/DVT history and has been on coumadin for 30 yrs, last INR 2 weeks ago within therapeutic range. ROS: See above HPI for pertinent positives & negatives. A total of 10 systems reviewed and were otherwise negative. Past Medical History:See Below Past Surgical History:See Below Family History:See Below Social History:See Below Home Medications:See Below Allergies:See Below Vitals:Blood Pressure: 120/69, Pulse 83, RR 20, T 36.5C, O2 96% on RA Physical Exam: GENERAL: Patient is anxious appearing and in minimal distress. EYES: No scleral icterus, unremarkable pupils. ENT: Mucous membranes moist, no nasal congestion. NECK: No masses appreciated, nomeningismus, trachea is midline. RESPIRATORY: No dyspnea. Clear to auscultation and equal bilaterally. No wheeze, no rhonchi. CARDIOVASCULAR: Regular rate and rhythm.No murmurs, rubs, gallops appreciated. GASTROINTESTINAL: Abdomen soft, non-tender, no peritonitis.Bowel sounds positive.No masses appreciated. BACK: No midline tenderness, no CVA tenderness EXTREMITIES: Normal motion all extremities, no cyanosis, no edema. NEUROLOGIC: Alert and oriented, no acute motor or sensory deficits, no focal weakness, cranial nerves grossly intact. SKIN: No rash, no jaundice, no diaphoresis. PSYCH: Appropriate GCS: 15 ED Course: Times/Reassessments: improvement pain, comfortable and agrees with hos pitalization Gilmer Cooley MD Past Med/Surg History Medical History Abdominal pain (02/16/13) Anxiety Chest pain Chronic abdominal pain Diverticulitis of colon Essential thrombocythemia Headache History of History of Clostridium difficile colitis History of DVT (deep vein thrombosis) History of malignant neoplasm of skin History of pulmonary embolism History of retinal detachment History of tuberculosis Hypercholesteremia Hypothyroidism Insomnia Leg pain Osteoarthritis Osteoporosis Right knee pain Small bowel obstruction Tubular adenoma of colon Vitamin D deficiency Surgical History H/O detached retina repair H/O tubal ligation History of bladder surgery History of endometrial biopsy History of lung surgery History of surgery Hx of colonoscopy Hx of tonsillectomy S/P cataract surgery S/P cholecystectomy S/P rotator cuff repair S/P small bowel resection Family History Brother Hx of aortic valve replacement Aunt Breast cancer Grandmother (Paternal) Cancer Heart disease Grandmother (Maternal) Cerebromeningeal hemorrhage Father Testicular cancer Prostate cancer Mother Stroke Heart disease Grandfather (Maternal) Heart disease Myocardial infarction Denies family history of Ovarian cancer Diabetes Colorectal cancer Social History Smoking Status: Never smoker Second Hand Exposure: Yes; Hx Alcohol Use: Yes (socially, 1 x/week) Alcohol type: beer and wine Alcohol Intake Frequency: 4 or More x per/Week Hx Substance Use: No Preferred Language: Tajik Communication Ability: Effective Visual Impairment: Limited Hearing Ability: Hard of Hearing Beliefs That Will Affect Care: None marital status: / Current Living Situation: Alone current occupational status: retired 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 Feels Safe at Home: Yes Childhood Exposure to Second-Hand Smoke: Yes Dental Care, Regularly: Yes Physical Activity Frequency: Daily Seatbelt Use: always Sunscreen Use: Yes Allergies Allergies Allergy/AdvReac Type Severity Reaction Status Date / Time Penicillins Allergy Severe EYES SWELL Verified 11/29/20 00:32 SHUT baclofen Allergy Unknown , Verified 11/29/20 00:32 alendronate sodium AdvReac Intermediate REFLUX Verified 11/29/20 00:32 ESOPHAGITIS/CHEST PAIN ciprofloxacin AdvReac Intermediate n/v/d Verified 11/29/20 00:32 morphine AdvReac Intermediate vomiting Verified 11/29/20 00:32 fesoterodine AdvReac Unknown dizziness Verified 11/29/20 00:32 mirabegron AdvReac Unknown dizziness Verified 11/29/20 00:32 Home Meds Home Medications Medication Instructions Recorded Confirmed calcium carbonate 500 mg calcium 500 mg PO DAILY 06/22/19 11/29/20 (1,250 mg) tablet (Calcium 500) potassium gluconate 595 mg (99 mg) 595 mg PO BID 04/05/20 11/29/20 tablet Oxygen Home 09/12/20 11/15/20 acetaminophen 650 mg 650 mg PO Q12H PRN MDD 3g 10/25/20 11/29/20 tablet,extended release (Tylenol Arthritis Pain) atorvastatin 40 mg tablet 40 mg PO QPM 11/29/20 11/29/20 cholecalciferol (vitamin D3) 25 50 mcg PO DAILY 11/29/20 11/29/20 mcg (1,000 unit) capsule levothyroxine 75 mcg tablet 75 mcg PO QAM 11/29/20 11/29/20 pantoprazole 40 mg tablet,delayed 40 mg PO DAILYBB 11/29/20 11/29/20 release (Protonix) warfarin 5 mg tablet 5 mg PO 4XWK 11/29/20 11/29/20 warfarin 7.5 mg tablet 7.5 mg PO 3XWK 11/29/20 11/29/20 zoledronic acid 5 mg/100 mL in 1 ea IV YEARLY 11/29/20 11/29/20 mannitol 5 %-water intravenous piggybck (Reclast) Previous Rx's Medication Instructions Recorded aspirin 81 mg tablet,delayed 81 mg PO QAM #90 tab 04/11/19 release (Adult Aspirin Regimen) celecoxib 200 mg capsule (Celebrex) 200 mg PO BID #180 cap 04/25/20 sucralfate 1 gram tablet (Carafate) 1 g PO BID #180 tab 04/30/20 dicyclomine 10 mg capsule 10 mg PO TID #270 cap 11/06/20 Results & Data (ED) Vital Signs Vital Signs - 24 hr 11/28/20 21:53 11/28/20 23:12 Temperature 36.5 C Temperature Source Temporal Artery Scan Pulse Rate 83 Pulse Rate [Right Finger] 72 Respiratory Rate 20 16 Respiratory Effort / Characteristics Non-Labored Spontaneous Respiratory Depth Normal Blood Pressure 120/69 Blood Pressure [Right Arm] 138/78 Blood Pressure Mean 86 Blood Pressure Mean [Right Arm] 98 Pulse Oximetry 96 94 Oxygen Delivery Method Room Air Room Air Sepsis New/Unexplained Change in Mental Status N/A Sepsis Action Taken by Nursing No Action Required Laboratory Data Result diagrams: 11/28/20 22:11 11/28/20 22:11 Lab Results 11/28/20 11/28/20 11/28/20 Range/Units 22:11 22:11 22:11 WBC 4.70 L (4.8-10.8) K/uL RBC 5.29 (4.2-5.4) M/uL Hgb 15.8 (12.0-16.0) g/dL Hct 48.0 H (37-47) % MCV 90.7 (80-100) fL MCH 29.9 (25-34) pg MCHC 32.9 (32-36) g/dL RDW Std Deviation 50.1 H (36.4-46.3) fL RDW Coeff of Herbie 14.9 H (11.5-14.5) % Plt Count 159 (130-400) K/uL MPV 9.7 (7.4-10.4) fL Immature Gran % (Auto) 0.2 % Neut % (Auto) 60.4 % Lymph % (Auto) 18.7 % Stafford % (Auto) 14.9 % Eos % (Auto) 4.9 % Baso % (Auto) 0.9 % Neut # (Auto) 2.84 (1.4-6.5) K/uL Lymph # (Auto) 0.88 L (1.2-3.4) K/uL Stafford # (Auto) 0.70 H (0.11-0.59) K/uL Eos # (Auto) 0.23 (0-0.5) K/uL Baso # (Auto) 0.04 (0-0.2) K/uL Immature Gran # (Auto) 0.01 (0.00-0.02) K/uL PT 18.8 H (9.0-12.0) Seconds INR 2.0 H (0.9-1.1) Sodium 143 (136-145) mmol/L Potassium 4.0 (3.5-5.1) mmol/L Chloride 111 H (98-107) mmol/L Carbon Dioxide 29 (21-32) mmol/L Anion Gap 3.0 (3-11) BUN 19 H (7-18) mg/dl Creatinine 0.83 (0.6-1.2) mg/dl Est Cr Clr Drug Dosing 56.3 ml/min Est GFR ( Amer) 80.5 ml/min Est GFR (Non-Af Amer) 69.5 ml/min BUN/Creatinine Ratio 22.4 H (10-20) Glucose 97 (70-99) mg/dl Calcium 9.1 (8.5-10.1) mg/dl Troponin I < 0.015 (0-0.045) ng/ml COVID-19 Eval Order 11/29/20 Range/Units 00:35 WBC (4.8-10.8) K/uL RBC (4.2-5.4) M/uL Hgb (12.0-16.0) g/dL Hct (37-47) % MCV (80-100) fL MCH (25-34) pg MCHC (32-36) g/dL RDW Std Deviation (36.4-46.3) fL RDW Coeff of Herbie (11.5-14.5) % Plt Count (130-400) K/uL MPV (7.4-10.4) fL Immature Gran % (Auto) % Neut % (Auto) % Lymph % (Auto) % Stafford % (Auto) % Eos % (Auto) % Baso % (Auto) % Neut # (Auto) (1.4-6.5) K/uL Lymph # (Auto) (1.2-3.4) K/uL Stafford # (Auto) (0.11-0.59) K/uL Eos # (Auto) (0-0.5) K/uL Baso # (Auto) (0-0.2) K/uL Immature Gran # (Auto) (0.00-0.02) K/uL PT (9.0-12.0) Seconds INR (0.9-1.1) Sodium (136-145) mmol/L Potassium (3.5-5.1) mmol/L Chloride (98-107) mmol/L Carbon Dioxide (21-32) mmol/L Anion Gap (3-11) BUN (7-18) mg/dl Creatinine (0.6-1.2) mg/dl Est Cr Clr Drug Dosing ml/min Est GFR ( Amer) ml/min Est GFR (Non-Af Amer) ml/min BUN/Creatinine Ratio (10-20) Glucose (70-99) mg/dl Calcium (8.5-10.1) mg/dl Troponin I (0-0.045) ng/ml COVID-19 Eval Order Covid19 at [facility] Administered Medications Discontinued Medications Al Hydrox/Mg Hydrox/Simethicone (Gi Cocktail Ed Use) 1 dose PO ONE ONE Stop: 11/28/20 22:29 Last Admin: 11/28/20 22:33 Dose: 1 dose Documented by: [id number] Aspirin (Aspirin 81 Mg Chew) 324 mg PO NOW STA Stop: 11/28/20 23:37 Last Admin: 11/28/20 23:43 Dose: 324 mg Documented by: [id number] Nitroglycerin (Nitroglycerin Sl 0.4 Mg/Tab Tab) 0.4 mg SL NOW STA Stop: 11/28/20 23:37 Last Admin: 11/28/20 23:43 Dose: 0.4 mg Documented by: [id number] Imaging Data Radiologist's Impression: Chest X-Ray 11/28/20 22:28 XR chest 1V portable INDICATION: [place] ^chest pain . TECHNIQUE: Single frontal radiograph of the chest was obtained. Comparison: Comparison is made to chest one view 10/24/2019 FINDINGS: No lines and tubes are seen. The cardiomediastinal silhouette is normal. The lungs are clear. There is possibly a small right pleural effusion. IMPRESSION: Possible small right pleural effusion. Otherwise no acute abnormality. ACT 112: Negative or not required by law. Electronically signed by: Lul Dunlap M.D. 11/28/2020 10:39 PM Discharge Plan Visit Data Chief Complaint: Cardiac Assessment Stated Complaint: CHEST DISCOMFORT ED Provider: Gilmer Cooley Discharge Problem: Substernal chest pain Forms Stand Alone Forms: My [facility] Prescriptions Prescriptions: No Action calcium carbonate [Calcium 500] 500 mg calcium (1,250 mg) tablet 500 mg PO DAILY RF: 0 acetaminophen [Tylenol Arthritis Pain] 650 mg tablet extended release 650 mg PO Q12H MDD 3g PRN (Reason: Pain) RF: 0 aspirin [Adult Aspirin Regimen] 81 mg tablet,delayed release (DR/EC) 81 mg PO QAM Qty: 90 RF: 3 celecoxib [Celebrex] 200 mg capsule 200 mg PO BID Qty: 180 RF: 3 sucralfate [Carafate] 1 gram tablet 1 g PO BID Qty: 180 RF: 3 dicyclomine 10 mg capsule 10 mg PO TID Qty: 270 RF: 3 (DME) Oxygen Home Liters Per Minute See Rx Instructions .Route RF: 0 potassium gluconate 595 mg (99 mg) Tablet 595 mg PO BID RF: 0 levothyroxine 75 mcg tablet 75 mcg PO QAM RF: 0 pantoprazole [Protonix] 40 mg tablet,delayed release (DR/EC) 40 mg PO DAILYBB RF: 0 atorvastatin 40 mg tablet 40 mg PO QPM RF: 0 cholecalciferol (vitamin D3) 25 mcg (1,000 unit) capsule 50 mcg PO DAILY RF: 0 warfarin 7.5 mg tablet 7.5 mg PO 3XWK RF: 0 warfarin 5 mg tablet 5 mg PO 4XWK RF: 0 zoledronic [id number] [Reclast] 5 mg/100 mL Piggyback 1 ea IV YEARLY RF: 0 Referrals Referrals: Nolberto Wiley MD [Primary Care Provider] -
--- NOTE | 2020-11-28 22:40 | XRay Report ---
XR chest 1V portable INDICATION: [place] ^chest pain . TECHNIQUE: Single frontal radiograph of the chest was obtained. Comparison: Comparison is made to chest one view 10/24/2019 FINDINGS: No lines and tubes are seen. The cardiomediastinal silhouette is normal. The lungs are clear. There i s possibly a small right pleural effusion. IMPRESSION: Possible small right pleural effusion. Otherwise no acute abnormality. ACT 112: Negative or not required by law. Electronically signed by: Lul Dunlap M.D. 11/28/2020 10:39 PM
[2020-11-28 23:02] LABS: Basophils # (auto) 0.04 K/uL (0-0.2); Basophils % (auto) 0.9 %; Eosinophils # (auto) 0.23 K/uL (0-0.5); Eosinophils % (auto) 4.9 %; Hemoglobin 15.8 g/dL (12.0-16.0); Immature Granulocytes # (auto) 0.01 K/uL (0.00-0.02); Immature Granulocytes % (auto) 0.2 %; Lymphocytes # (auto) 0.88 K/uL (1.2-3.4); Lymphocytes % (auto) 18.7 %; Mean Corpuscular Hemoglobin 29.9 pg (25-34); Mean Corpuscular Hgb Conc 32.9 g/dL (32-36); Mean Corpuscular Volume 90.7 fL (80-100); Mean Platelet Volume 9.7 fL (7.4-10.4); Monocytes % (auto) 14.9 %; Neutrophils # (auto) 2.84 K/uL (1.4-6.5); Neutrophils % (auto) 60.4 %; Platelet Count 159 K/uL (130-400); RDW Coefficient of Variation 14.9 % (11.5-14.5); RDW Standard Deviation 50.1 fL (36.4-46.3); Red Blood Count 5.29 M/uL (4.2-5.4)
[2020-11-28 23:09] LABS: BUN Creatinine Ratio 22.4 (10-20); Blood Urea Nitrogen 19 mg/dl (7-18); Calcium 9.1 mg/dl (8.5-10.1); Carbon Dioxide 29 mmol/L (21-32); Chloride 111 mmol/L (98-107); Creatinine Clr Calc Pharmacy 56.3 ml/min; Est GFR (African American) 80.5 ml/min; Est GFR (Non-African American) 69.5 ml/min; Glucose 97 mg/dl (70-99); Sodium 143 mmol/L (136-145)
[2020-11-28 23:11] LABS: Prothrombin Time 18.8 Seconds (9.0-12.0)
[2020-11-28 23:13] LABS: Troponin I < 0.015 ng/ml (0-0.045)
[2020-11-28] MEDS ORDERED: ASPIRIN 81 MG CHEW PO STA (23:36)
[2020-11-28] MEDS ORDERED: NITROGLYCERIN SL 0.4 MG/TAB TAB SL STA (23:36)
--- NOTE | 2020-11-29 00:50 | History & Physical Report ---
Date of Service November 29, 2020 Assessment & Plan (1) Substernal chest pain: Plan: Substernal chest pain radiating to jaws bilaterally- The patient will be admitted to telemetry for serial cardiac enzymes, serial EKG's, cardiac rhythm monitoring and a 2-D echocardiogram with Dopplers. Initial troponin negative, and EKG with no acute findings Continue aspirin 81 mg daily Hold Celebrex Of note, patient did have her yearly injection of Reclast 4 days ago, and her symptoms may be potentially associated with a side effect (2) History of DVT (deep vein thrombosis): Plan: History of left lower extremity DVT/chronic anticoagulation with warfarin- INR therapeutic at 2.0, continue current dose of warfarin Left lower extremity has always been enlarged compared to right ever since the clot occurred (3) Chronic anticoagulation: Plan: See above (4) Essential thrombocythemia: Plan: Platelets of 159 are within usual range (5) Chronic reflux esophagitis: (6) Hyperlipidemia: Plan: Continue atorvastatin 40 mg daily (7) Hypothyroidism: Plan: Continue levothyroxine 75 mcg daily (8) Polycythemia vera: Plan: Hemoglobin stable and within usual range at 15.8 (9) Restrictive lung disease: Plan: No acute issues noted History of Present Illness Chief Complaint: The patient presents to the emergency department with complaint of substernal chest discomfort radiating to her bilateral jaws intermittently over the past 24 hours Primary Care Provider: Nolberto Wiley MD The patient is a 75-year-old female with a past medical history including chronic anticoagulation, polycythemia, vitamin D deficiency, osteoporosis, hypothyroidism, insomnia, essential thrombocythemia, diverticulitis of colon, cystocele, lumbar disc disease, pulmonary nodules, thoracic disc disease, chronic reflux esophagitis, restrictive lung disease, obstructive sleep apnea, history of DVT, anxiety and osteoarthritis. She presents with symptoms as noted above. Allergies Allergy/AdvReac Type Severity Reaction Status Date / Time Penicillins Allergy Severe EYES SWELL Verified 11/29/20 00:32 SHUT baclofen Allergy Unknown , Verified 11/29/20 00:32 alendronate sodium AdvReac Intermediate REFLUX Verified 11/29/20 00:32 ESOPHAGITIS/CHEST PAIN ciprofloxacin AdvReac Intermediate n/v/d Verified 11/29/20 00:32 morphine AdvReac Intermediate vomiting Verified 11/29/20 00:32 fesoterodine AdvReac Unknown dizziness Verified 11/29/20 00:32 mirabegron AdvReac Unknown dizziness Verified 11/29/20 00:32 Home Medications Medication Instructions Recorded Confirmed Type aspirin 81 mg tablet,delayed 81 mg PO QAM #90 tab 04/11/19 11/29/20 Rx release (Adult Aspirin Regimen) calcium carbonate 500 mg calcium 500 mg PO DAILY 06/22/19 11/29/20 History (1,250 mg) tablet (Calcium 500) potassium gluconate 595 mg (99 mg) 595 mg PO BID 04/05/20 11/29/20 History tablet celecoxib 200 mg capsule (Celebrex) 200 mg PO BID #180 cap 04/25/20 11/29/20 Rx sucralfate 1 gram tablet (Carafate) 1 g PO BID #180 tab 04/30/20 11/29/20 Rx Oxygen Home 09/12/20 11/15/20 History acetaminophen 650 mg 650 mg PO Q12H PRN MDD 3g 10/25/20 11/29/20 History tablet,extended release (Tylenol Arthritis Pain) dicyclomine 10 mg capsule 10 mg PO TID #270 cap 11/06/20 11/29/20 Rx atorvastatin 40 mg tablet 40 mg PO QPM 11/29/20 11/29/20 History cholecalciferol (vitamin D3) 25 50 mcg PO DAILY 11/29/20 11/29/20 History mcg (1,000 unit) capsule levothyroxine 75 mcg tablet 75 mcg PO QAM 11/29/20 11/29/20 History pantoprazole 40 mg tablet,delayed 40 mg PO DAILYBB 11/29/20 11/29/20 History release (Protonix) warfarin 5 mg tablet 5 mg PO 4XWK 11/29/20 11/29/20 History warfarin 7.5 mg tablet 7.5 mg PO 3XWK 11/29/20 11/29/20 History zoledronic acid 5 mg/100 mL in 1 ea IV YEARLY 11/29/20 11/29/20 History mannitol 5 %-water intravenous piggybck (Reclast) Past Med/Surg History Medical History Abdominal pain (02/16/13) Anxiety Chest pain Chronic abdominal pain Diverticulitis of colon Essential thrombocythemia Headache History of History of Clostridium difficile colitis History of DVT (deep vein thrombosis) History of malignant neoplasm of skin History of pulmonary embolism History of retinal detachment History of tuberculosis Hypercholesteremia Hypothyroidism Insomnia Leg pain Osteoarthritis Osteoporosis Right knee pain Small bowel obstruction Tubular adenoma of colon Vitamin D deficiency Surgical History H/O detached retina repair H/O tubal ligation History of bladder surgery History of endometrial biopsy History of lung surgery History of surgery Hx of colonoscopy Hx of tonsillectomy S/P cataract surgery S/P cholecystectomy S/P rotator cuff repair S/P small bowel resection Family History Brother Hx of aortic valve replacement Aunt Breast cancer Grandmother (Paternal) Cancer Heart disease Grandmother (Maternal) Cerebromeningeal hemorrhage Father Testicular cancer Prostate cancer Mother Stroke Heart disease Grandfather (Maternal) Heart disease Myocardial infarction Denies family history of Ovarian cancer Diabetes Colorectal cancer Social History Smoking Status: Never smoker Second Hand Exposure: Yes; Hx Alcohol Use: Yes Alcohol type: beer and wine Alcohol Intake Frequency: 4 or More x per/Week Hx Substance Use: No Preferred Language: Latvian Communication Ability: Effective Visual Impairment: Limited Hearing Ability: Hard of Hearing Developing Machine Tender Required: No Beliefs That Will Affect Care: None marital status: / Current Living Situation: Alone current occupational status: retired 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 Other Information That Helps Us Care for You: No Feels Safe at Home: Yes Safety Concerns: Feels Safe At This Time Childhood Exposure to Second-Hand Smoke: Yes Dental Care, Regularly: Yes Physical Activity Frequency: Daily Seatbelt Use: always Sunscreen Use: Yes Assistive Devices: Oxygen - at Night Review of Systems Review of Systems: The patient denies palpitations, cough, lower extremity swelling, sore throat, fevers, chills, sweats, fatigue, nausea, vomiting, diarrhea , constipation, abdominal pain, pelvic pain, blood in urine or stool, dysuria, urinary frequency or urgency, lightheadedness, dizziness, memory loss, loss of consciousness, rash, abnormal bruising or bleeding, imbalance, focal or generalized weakness, numbness or tingling in arms or legs, back or neck pain, or night sweats. The review of systems is otherwise negative other than for that already noted above, and at least 10 systems have been reviewed. Physical Exam Physical Exam: The patient is awake, alert and oriented 3, well developed and well nourished, normocephalic and atraumatic, lying in bed and in no acute distress. HEENT--PERRL, EOMI, mucous membranes and oropharynx normal Neck--supple. No JVD. No bruits. Thyroid normal, trachea midline, no adenopathy. Heart--normal S1 and S2. No murmurs, rubs or gallops. Lungs--clear bilaterally, no respiratory distress, no accessory muscle use. Abdomen--normal bowel sounds and soft. Nontender. Nondistended, no hernias or masses, no organomegaly. Extremities--no cyanosis or clubbing. No edema. Dermatologic--normal skin turgor, normal color, no abnormal lymph nodes, no rash. Neurologic--cranial nerves II through XII grossly intact. Rheumatologic--normal range of motion. Psychiatric--normal affect. Results & Data Results & Data ([facility]) Vital Signs (Past 12 Hours) Vital Signs Temp Pulse Pulse Resp BP BP Pulse Ox 11/28/20 23:12 72 16 138/78 94 11/28/20 21:53 97.7 F 83 20 120/69 96 Laboratory Results Laboratory Results WBC 4.70 K/uL (4.8-10.8) L 11/28/20 22:11 RBC 5.29 M/uL (4.2-5.4) 11/28/20 22:11 Hgb 15.8 g/dL (12.0-16.0) 11/28/20 22:11 Hct 48.0 % (37-47) H 11/28/20 22:11 MCV 90.7 fL (80-100) 11/28/20 22:11 MCH 29.9 pg (25-34) 11/28/20 22:11 MCHC 32.9 g/dL (32-36) 11/28/20 22:11 RDW Std Deviation 50.1 fL (36.4-46.3) H 11/28/20 22:11 RDW Coeff of Herbie 14.9 % (11.5-14.5) H 11/28/20 22:11 Plt Count 159 K/uL (130-400) 11/28/20 22:11 MPV 9.7 fL (7.4-10.4) 11/28/20 22:11 Immature Gran % (Auto) 0.2 % 11/28/20 22:11 Neut % (Auto) 60.4 % 11/28/20 22:11 Lymph % (Auto) 18.7 % 11/28/20 22:11 Trigg % (Auto) 14.9 % 11/28/20 22:11 Eos % (Auto) 4.9 % 11/28/20 22:11 Baso % (Auto) 0.9 % 11/28/20 22:11 Neut # (Auto) 2.84 K/uL (1.4-6.5) 11/28/20 22:11 Lymph # (Auto) 0.88 K/uL (1.2-3.4) L 11/28/20 22:11 Trigg # (Auto) 0.70 K/uL (0.11-0.59) H 11/28/20 22:11 Eos # (Auto) 0.23 K/uL (0-0.5) 11/28/20 22:11 Baso # (Auto) 0.04 K/uL (0-0.2) 11/28/20 22:11 Immature Gran # (Auto) 0.01 K/uL (0.00-0.02) 11/28/20 22:11 PT 18.8 Seconds (9.0-12.0) H 11/28/20 22:11 INR 2.0 (0.9-1.1) H 11/28/20 22:11 Sodium 143 mmol/L (136-145) 11/28/20 22:11 Potassium 4.0 mmol/L (3.5-5.1) 11/28/20 22:11 Chloride 111 mmol/L (98-107) H 11/28/20 22:11 Carbon Dioxide 29 mmol/L (21-32) 11/28/20 22:11 Anion Gap 3.0 (3-11) 11/28/20 22:11 BUN 19 mg/dl (7-18) H 11/28/20 22:11 Creatinine 0.83 mg/dl (0.6-1.2) 11/28/20 22:11 Est Cr Clr Drug Dosing 56.3 ml/min 11/28/20 22:11 Est GFR ( Amer) 80.5 ml/min 11/28/20 22:11 Est GFR (Non-Af Amer) 69.5 ml/min 11/28/20 22:11 BUN/Creatinine Ratio 22.4 (10-20) H 11/28/20 22:11 Glucose 97 mg/dl (70-99) 11/28/20 22:11 Calcium 9.1 mg/dl (8.5-10.1) 11/28/20 22:11 Troponin I < 0.015 ng/ml (0-0.045) 11/28/20 22:11 COVID-19 Eval Order Covid19 at [facility] 11/29/20 00:35 SARS-CoV-2 (PCR) NEGATIVE (Negative) 11/29/20 00:35 Impressions Chest X-Ray 11/28/20 22:28 XR chest 1V portable INDICATION: [place] ^chest pain . TECHNIQUE: Single frontal radiograph of the chest was obtained. Comparison: Comparison is made to chest one view 10/24/2019 FINDINGS: No lines and tubes are seen. The cardiomediastinal silhouette is normal. The lungs are clear. There is possibly a small right pleural effusion. IMPRESSION: Possible small right pleural effusion. Otherwise no acute abnormality. ACT 112: Negative or not required by law. Electronically signed by: Lul Dunlap M.D. 11/28/2020 10:39 PM ECG Additional Comments: CORONA SIMI ID:[id number] 28-NOV-2020 22:04:32 [facility]-EDSTAT ROUTINE RETRIEVAL Normal sinus rhythm Possible Left atrial enlargement Nonspecific ST abnormality Abnormal ECG When compared with ECG of 05-APR-2020 10:48, No significant change was found 25mm/s 10mm/mV 150Hz 9.0.9 12SL 241 HIRA: 10 Unconfirmed Vent. rate 68 BPM NM interval 144 ms QRS duration 76 ms QT/QTc 406/431 ms P-R-T axes 72 43 70 1945 (75 yr) Female 1in 0lb Room: Loc:15 Manager Division:Vinicius Seymour Te Code Status & VTE Plan Code Status Full code VTE Prophylaxis Plan VTE Prophylaxis will be ordered: Yes PG Care Time/CCT Total # of Minutes Spent Total Time Spent with Patient: Total time spent is greater than 50% in coordination of care (as documented) at patient's floor/unit and/or counseling patient: Coding Level of Care Code INT OBSERVATION CARE 70M LVL 3 Diagnoses Substernal chest pain R07.2 Chronic anticoagulation Z79.01 Hypothyroidism E03.9 Essential thrombocythemia D47.3 Chronic reflux esophagitis K21.0 Hyperlipidemia E78.5 Polycythemia vera D45 Restrictive lung disease J98.4 History of DVT (deep vein thrombosis) Z86.718
[2020-11-29] MEDS ORDERED: ACETAMINOPHEN 325 MG TAB ONE (01:38)
[2020-11-29] MEDS ORDERED: NON-FORMULARY MEDICATION (Acetaminophen [Tylenol Arthritis Pain] 650 mg tablet extended re PO PRN (04:18)
[2020-11-29] MEDS ORDERED: NITROGLYCERIN SL 0.4 MG/TAB TAB SL PRN (04:18)
[2020-11-29] MEDS ORDERED: ACETAMINOPHEN 325 MG TAB PO PRN (04:18)
[2020-11-29] MEDS ORDERED: ONDANSETRON INJ 2 MG/ML 2 ML VIAL IV PRN (04:18)
[2020-11-29] MEDS ORDERED: Influenza Vaccine-High Dose (Fluzone-HD) PF 65+ 0.7 ML SYR IM ONE (04:30)
[2020-11-29] MEDS ORDERED: MoRPHine SULFATE 2 MG/ML CARP IV PRN (04:58)
[2020-11-29 06:20] LABS: Basophils # (auto) 0.04 K/uL (0-0.2); Basophils % (auto) 1.1 %; Eosinophils # (auto) 0.33 K/uL (0-0.5); Eosinophils % (auto) 8.8 %; Hematocrit (blood only) 47.6 % (37-47); Hemoglobin 15.5 g/dL (12.0-16.0); Lymphocytes # (auto) 0.95 K/uL (1.2-3.4); Lymphocytes % (auto) 25.4 %; Mean Corpuscular Hgb Conc 32.6 g/dL (32-36); Mean Corpuscular Volume 89.1 fL (80-100); Mean Platelet Volume 9.5 fL (7.4-10.4); Monocytes # (auto) 0.52 K/uL (0.11-0.59); Monocytes % (auto) 13.9 %; Neutrophils % (auto) 50.8 %; Platelet Count 137 K/uL (130-400); RDW Coefficient of Variation 14.9 % (11.5-14.5); RDW Standard Deviation 48.3 fL (36.4-46.3); Red Blood Count 5.34 M/uL (4.2-5.4); White Blood Count 3.74 K/uL (4.8-10.8)
[2020-11-29] MEDS ORDERED: PANTOprazole 40 MG TAB PO SCH (06:30)
[2020-11-29] MEDS ORDERED: LEVOTHYROXINE SODIUM 75 MCG TABLET PO SCH (06:30)
[2020-11-29 06:48] LABS: Alanine Aminotransferase 24 U/L (12-78); Albumin Level 3.2 gm/dl (3.4-5.0); Aspartate Aminotransferase 22 U/L (15-37); BUN Creatinine Ratio 23.3 (10-20); Blood Urea Nitrogen 16 mg/dl (7-18); Calcium 8.9 mg/dl (8.5-10.1); Carbon Dioxide 28 mmol/L (21-32); Chloride 111 mmol/L (98-107); Creatinine Clr Calc Pharmacy 66.2 ml/min; Est GFR (African American) 98.9 ml/min; Est GFR (Non-African American) 85.4 ml/min; Glucose 84 mg/dl (70-99); Magnesium 2.1 mg/dl (1.8-2.4); Sodium 142 mmol/L (136-145)
[2020-11-29 06:53] LABS: Albumin Globulin Ratio 0.9 (0.9-2); Alkaline Phosphatase 66 U/L (45-117); Bilirubin,Total 0.4 mg/dl (0.2-1); Globulin 3.4 gm/dl (2.5-4.0); Total Protein 6.6 gm/dl (6.4-8.2); Troponin I < 0.015 ng/ml (0-0.045)
[2020-11-29] MEDS: DICYCLOMINE HCL 10 MG CAP PO SCH ×2 (07:30→14:03)
--- NOTE | 2020-11-29 08:47 | Hospitalist Progress Note ---
Date of Service November 29, 2020 Assessment & Plan Admission and Anticipated Discharge Date Admission Date: November 29, 2020 Subjective 75yo Female here for CP. States she was out working gardening thursday, next day overexerted herself says was rather hot that day, and rested thursday felt chest heaviness (similar to her gerd), pain radiating up sides of neck to jaw that lasted until now. Chest heaviness resolved with GI cocktail in ED. states she was more irritable than usual day after, also left sided headache not like her migrains no improvement with tylenol and darkness last 2 days no change in vision doesn't take anything for it. States her doctor recently increased her statin not sure why doesn't know last lipid panel. States she had 2nd dose reclast 4 days ago is worried about side effects causing all this. States does not feel like her previous PE Currently no chest heaviness SOB N/V D/C. Patient has increased neck pain turning head activily side to side and holding it there, moving her head in that positive reproduces pain and gives her some nausea, localized to point under corner of jaw. Patient complains of spot on left head and back of neck pain, and pain in jaw and neck b/l PMH HTN HLD migraines PE Lives with dog, cats, horses, lives alone. Results & Data Results & Data ([facility]) Vital Signs (Past 12 Hours) Vital Signs Temp Pulse Pulse Pulse Resp BP BP 11/29/20 08:00 58 L 11/29/20 07:45 36.6 C 60 19 124/77 11/29/20 04:05 36.5 C 59 L 18 11/29/20 03:40 68 16 11/29/20 03:03 59 L 16 11/29/20 02:32 68 129/80 11/29/20 01:30 60 19 121/72 11/29/20 01:08 60 12 11/29/20 00:33 59 L 17 11/29/20 00:01 64 14 11/28/20 23:30 65 20 11/28/20 23:12 64 72 19 11/28/20 22:07 138/78 11/28/20 21:53 36.5 C 83 20 120/69 BP Pulse Ox 11/29/20 08:00 11/29/20 07:45 93 11/29/20 04:05 139/69 94 11/29/20 03:40 114/74 98 11/29/20 03:03 126/77 96 11/29/20 02:32 11/29/20 01:30 11/29/20 01:08 11/29/20 00:33 95 11/29/20 00:01 93 11/28/20 23:30 94 11/28/20 23:12 138/78 93 11/28/20 22:07 11/28/20 21:53 96
[2020-11-29] MEDS ORDERED: ASPIRIN 81 MG ECTAB PO SCH (09:00)
[2020-11-29] MEDS ORDERED: SUCRALFATE 1 GM TAB PO SCH (09:00)
[2020-11-29] MEDS ORDERED: NON-FORMULARY MEDICATION (Potassium Gluconate 595 mg (99 mg) Tablet) PO SCH (09:00)
[2020-11-29] MEDS ORDERED: CHOLECALCIFEROL 1,000 UNITS 25 MCG TAB PO SCH (09:00)
[2020-11-29] MEDS ORDERED: CALCIUM CARBONATE 1250MG TAB PO SCH (09:00)
[2020-11-29 11:03] LABS: Chol HDL Ratio 3; Cholesterol 135 mg/dl (0-200); HDL Cholesterol 55 mg/dl; LDL Cholesterol Calculated 65 mg/dl; Triglycerides 77 mg/dl (0-150); VLDL Cholesterol 15 mg/dl
--- NOTE | 2020-11-29 14:54 | XCELERA ---
[id number] \\[id number]_[id number]
--- NOTE | 2020-11-29 15:31 | Discharge Summary ---
Date of Service November 29, 2020 Admission HPI Per Admitting Provider The patient is a 75-year-old female with a past medical history including chronic anticoagulation, polycythemia, vitamin D deficiency, osteoporosis, hypothyroidism, insomnia, essential thrombocythemia, diverticulitis of colon, cystocele, lumbar disc disease, pulmonary nodules, thoracic disc disease, chronic reflux esophagitis, restrictive lung disease, obstructive sleep apnea, history of DVT, anxiety and osteoarthritis. She presents with symptoms as noted above. Admission Exam Per Admitting Provider The patient is awake, alert and oriented 3, well developed and well nourished, normocephalic and atraumatic, lying in bed and in no acute distress. HEENT--PERRL, EOMI, mucous membranes and oropharynx normal Neck--supple. No JVD. No bruits. Thyroid normal, trachea midline, no adenopathy. Heart--normal S1 and S2. No murmurs, rubs or gallops. Lungs--clear bilaterally, no respiratory distress, no accessory muscle use. Abdomen--normal bowel sounds and soft. Nontender. Nondistended, no hernias or masses, no organomegaly. Extremities--no cyanosis or clubbing. No edema. Dermatologic--normal skin turgor, normal color, no abnormal lymph nodes, no rash. Neurologic--cranial nerves II through XII grossly intact. Rheumatologic--normal range of motion. Psychiatric--normal affect. Principal Diagnosis GERD and Musculoskeletal dysfunction Discharge Exam General: Well appearing, age appropriate Heart: RRR, +S1 S2, no murmurs/gallops/rubs Lungs: cta b/l, no wheezes/rales/rhonchi Abd: soft, NT/ND, +BS Extremities: +1 pitting edema LLE Neuro: CN2-12 intact b/l HEENT: pain on left neck reproducible on palpation and cervical manipulation, paraspinal tightness noted Discharge Data Allergies Allergy/AdvReac Type Severity Reaction Status Date / Time Penicillins Allergy Severe EYES SWELL Verified 11/29/20 00:32 SHUT baclofen Allergy Unknown , Verified 11/29/20 00:32 alendronate sodium AdvReac Intermediate REFLUX Verified 11/29/20 00:32 ESOPHAGITIS/CHEST PAIN ciprofloxacin AdvReac Intermediate n/v/d Verified 11/29/20 00:32 morphine AdvReac Intermediate vomiting Verified 11/29/20 00:32 fesoterodine AdvReac Unknown dizziness Verified 11/29/20 00:32 mirabegron AdvReac Unknown dizziness Verified 11/29/20 00:32 Consultations 11/28/20 23:53 ED Decision to Admit Stat Hospital Course (1) Substernal chest pain: 75yo Female with PMH GERD, anxiety, migraine, chronic anticoagulation, PE, DVT, osteoporosis, restrictive lung disease, MANUEL, hypothyroid here for chest heaviness and neck pain radiating to jaw and headache. ()Chest Discomfort. Patient describes b/l chest discomfort ongoing 4 days post heavy exertion, resolved with GI cocktail in ED. Troponin CBC BMP negative, LFT WNL, Lipid panel WNL, INR at therapeutic level, EKG sinus bradycardia, CXR possible small R pleural effusion, stress echo negative for ischemia good exercise tolerance. Etiology likely 2/2 to gastrointestinal, PMH GERD. Patient currently asymptomatic. She should follow up with her PCP. ()Cervicalgia Patient describes b/l neck pain radiating to her jaw, ongoing 4 days post heavy gardening, not improved with tylenol. She also describes headache along left side and back of head not improved with rest or low lighting. Patient recieved sublingual nitroglycerin in ED, she states it made her headache worse. Labs and imaging as above. Patient's pain was reproducible upon palpation and head positioning. Patient described improvement of her neck pain with OMT treatment. Please have patient follow up with her PCP. (2) Bloating: (3) Cervicalgia: (4) GERD (gastroesophageal reflux disease): Total Time Total Time Spent Total Time Spent (In Minutes): <30 Discharge Plan Discharge Items Patient Disposition: Home - Self-Care Reason For Visit: CHEST PAIN RADIATING TO JAWS BILATERALLY Discharge Diagnosis: GERD and Musculoskeletal Dysfunction Activity: Resume your previous activity Non-emergency contact: Primary Care Provider Call non-emergency contact if: your symptoms worsen and you have a fever Follow-up/Referrals: Nolberto Wiley MD [Primary Care Provider] - Thee Ayoub, [Physician] - Diet: Regular Addtl Attending Provider Instructions: You were admitted to the hospital for chest pain and neck pain radiating to your jaw. You were found to have gastrointestinal upset, as well as neck and back muscle spasms that caused your jaw pain and headache. You were treated with antacids and anti-bloating medication for your GERD, and treated with osteopathic manipulative medicine for your muscle spasms. Please follow up with your family doctor after you leave the hospital. In the event that your muscle spasms continue, you can make an appointment with Dr. Thee Ayoub with [facility] for OMT treatment. Please get your flu vaccination 2-4 weeks after your 3rd COVID vaccination. A discharge summary will be sent to your primary care physician to ensure continuity of care. Please bring this discharge summary with you to your next office appointment so that your provider can review it at that time. Follow-up appointments: Make a follow-up appointment with your PCP within the next week. It is very important that you follow up with them shortly after discharge from the hospital. Keep all your follow-up appointments as already scheduled. If you cannot make an appointment, notify your provider. Medications: Take your medications as instructed; do not skip a dose of your medicines. Make sure all of your doctors know every medicine you are taking (including lxga-dbz-lkbsnck medicines, vitamins, and supplements). Call your primary care provider before taking any new medicines (including osgf-ypk-tdlfagh medicines, vitamins, and supplements), because some of these may interact with your current medications, or may make your symptoms worse. Tell your primary care provider if you cannot afford your medications. CONTACT YOUR PRIMARY CARE PROVIDER if you experience any of the following: difficulty breathing, chest pain Difficulty following your treatment plan, or difficulty taking medications CALL 911 OR GO TO THE EMERGENCY DEPARTMENT if you experience any of the following: Sudden, severe abdominal pain or nausea/vomiting Severe chest pain, or chest pain that radiates (moves) to your jaw or arm Sudden, severe shortness of breath or difficulty breathing Thank you for allowing us to participate in your care. Pending Studies at Discharge: No Stand-Alone Forms: My [employer], Smoking Cessation Medications and DC Order Prescriptions: Continued calcium carbonate [Calcium 500] 500 mg calcium (1,250 mg) tablet 500 mg PO DAILY RF: 0 acetaminophen [Tylenol Arthritis Pain] 650 mg tablet extended release 650 mg PO Q12H MDD 3g PRN (Reason: Pain) RF: 0 aspirin [Adult Aspirin Regimen] 81 mg tablet,delayed release (DR/EC) 81 mg PO QAM Qty: 90 RF: 3 celecoxib [Celebrex] 200 mg capsule 200 mg PO BID Qty: 180 RF: 3 sucralfate [Carafate] 1 gram tablet 1 g PO BID Qty: 180 RF: 3 dicyclomine 10 mg capsule 10 mg PO TID Qty: 270 RF: 3 (DME) Oxygen Home Liters Per Minute See Rx Instructions .Route RF: 0 potassium gluconate 595 mg (99 mg) Tablet 595 mg PO BID RF: 0 levothyroxine 75 mcg tablet 75 mcg PO QAM RF: 0 pantoprazole [Protonix] 40 mg tablet,delayed release (DR/EC) 40 mg PO DAILYBB RF: 0 atorvastatin 40 mg tablet 40 mg PO QPM RF: 0 cholecalciferol (vitamin D3) 25 mcg (1,000 unit) capsule 50 mcg PO DAILY RF: 0 warfarin 7.5 mg tablet 7.5 mg PO 3XWK RF: 0 warfarin 5 mg tablet 5 mg PO 4XWK RF: 0 zoledronic yjma-arvcuqcm-hlsxy [Reclast] 5 mg/100 mL Piggyback 1 ea IV YEARLY RF: 0 Discharge Orders: Discharge Order (Routine); Ordered 11/29/20 Ordered By: Renée Adam Admission Data Admit Date/Time: 11/29/20 00:49 Attending Provider: Marshall Rosales Admit Provider: Jose Miguel Dinh Primary Care Provider: Nolberto Wiley Other Providers: Jose Miguel Dinh Other Interventions: Discharge Summary Assessment (RN) Last Done: 11/29/20 17:27 Supervising Physician Co-Signing Physician Notes I personally examined the patient and verified all clemente points of history and exam, discussed case, and agree with decision making with Dr Adam. Chest pain better, neck pain is not. Stress test negative. Vitals noted, in general she is awake and alert pleasant no distress. HEENT normocephalic atraumatic mucous membranes moist. Breathing unlabored no accessory muscle use good effort. Skin shows no rashes no pallor or icterus. Musculoskeletal/osteopathic shows left sided suboccipitals and paraspinals to be high in tone, tender, decreased range of motioninhibitory pressure as well as a degree of post isometric relaxation muscle energy done with improvement. Patient tolerated well. Chest painappears to have been a combination of GERD causing the chest discomfort, as well as left sided neck muscle dysfunction creating the jaw pain/headache/etc.fortunately noncardiac, stable for home. Neck pain/cervical somatic dysfunctionOMT done as above with improvement in symptoms. Discussed that she could seek further OMT if necessary within [facility], INCG with Dr. Ayoub. Resident Activity Tracking Resident Involvement: Resident Care Provided Care Provided: Adult Hospital Medicine
[2020-11-29] MEDS ORDERED: WARFARIN SOD 5 MG TAB PO SCH (16:00)
--- NOTE | 2020-11-29 20:26 | Hospitalist Progress Note ---
Date of Service November 29, 2020 Assessment & Plan Admission and Anticipated Discharge Date Admission Date: November 29, 2020 Results & Data Results & Data ([facility]) Vital Signs (Past 12 Hours) Vital Signs Temp Pulse Pulse Pulse Resp BP BP 11/29/20 17:27 98.1 F 59 L 62 18 120/76 109/68 11/29/20 16:00 62 11/29/20 15:53 98.1 F 62 18 120/76 11/29/20 13:24 97.9 F 70 20 109/68 Pulse Ox 11/29/20 17:27 95 11/29/20 16:00 11/29/20 15:53 95 11/29/20 13:24 96 PG Care Time/CCT Total # of Minutes Spent Total Time Spent with Patient: Total time spent is greater than 50% in co ordination of care (as documented) at patient's floor/unit and/or counseling patient: Coding Level of Care Code None CPT Codes Musculoskeletal - Musculoskeletal: [address] 1-2 Body regions ([id number])
--- NOTE | 2020-11-29 20:26 | Billing Data ---
Date of Service November 29, 2020 Coding Level of Care Code 70353 OBS Care - Discharge
[2020-11-29] MEDS ORDERED: ATORVASTATIN 40 MG TAB PO SCH (21:00)
--- NOTE | 2020-11-30 06:04 | Electrocardiogram Report ---
Test Reason : Blood Pressure : / mmHG Vent. Rate : 068 BPM Atrial Rate : 068 BPM P-R Int : 144 ms QRS Dur : 076 ms QT Int : 406 ms P-R-T Axes : 072 043 070 degrees QTc Int : 431 ms Normal sinus rhythm Possible Left atrial enlargement Nonspecific ST abnormality Abnormal ECG When compared with ECG of 05-APR-2020 10:48, No significant change was found Confirmed by Nicholas Hollis ([id number]) on 11/30/2020 6:04:39 AM Referred By: REFERRED SELF Confirmed By:iNcholas Hollis
[2020-11-30] MEDS ORDERED: WARFARIN SOD 7.5 MG TAB PO SCH (16:00)
--- NOTE | 2020-11-30 16:54 | Electrocardiogram Report ---
Test Reason : Blood Pressure : / mmHG Vent. Rate : 055 BPM Atrial Rate : 055 BPM P-R Int : 148 ms QRS Dur : 076 ms QT Int : 432 ms P-R-T Axes : 054 002 037 degrees QTc Int : 413 ms Sinus bradycardia Otherwise normal ECG When compared with ECG of 28-NOV-2020 22:04, No significant change was found Confirmed by Nicholas Hollis ([id number]) on 11/30/2020 4:53:33 PM Referred By: REFERRED SELF Confirmed By:Nicholas Hollis
== END 2020-11-29 17:51 | disposition home or self-care (01) ==
LOC: ED 21:47 → 2S 21:47 → SUATTDRO 11-29 00:49 → 2S 11-29 03:46